=== PATIENT | female | born 1990 | race African-American/Black ===

== ENCOUNTER 2016-08-29 15:00 | Inpatient (IN) | payer SELFPAY ==
[2016-08-29] MEDS ORDERED: PENICILLIN G-K 5 MILLION UNIT VIAL ONE ×2 (15:59→19:38)
[2016-08-29 16:00] LABS: APPEARANCE,URINE SLIGHTLY-CLOUDY; BILIRUBIN,URINE NEGATIVE (NEGATIVE); GLUCOSE, URINE NEGATIVE (NEGATIVE); KETONES,URINE NEGATIVE (NEGATIVE); LEUKOCYTE ESTERASE,URINE LARGE (NEGATIVE); NITRITE,URINE NEGATIVE (NEGATIVE); PROTEIN,URINE NEGATIVE (NEGATIVE); URINE SPECIFIC GRAVITY 1.003; UROBILINOGEN,URINE NEGATIVE mg/dL (<2.0)
--- NOTE | 2016-08-29 16:00 | L&D Flow Sheet ---
LD Flowsheet Datetime Report Generated by CPN: 08/29/2016 16:00 Datetime: 08/29/2016 15:55 Patient Care IV/Blood Work: IV Started; IV Bolus Started (Keely Toi, RNC) Datetime: 08/29/2016 15:22 Vital Signs NBP Sys/[place]/Mean (mmHg): 107 (QS system process) : 75 (QS system process) : 87 (QS system process) Pulse: 89 (QS system process)
[2016-08-29 16:10] LABS: ABSOLUTE EOSINOPHILS # (AUTO) 0.1 10^3/uL (0.0-0.6); ABSOLUTE LYMPHOCYTES (AUTO) 2.3 10^3/uL (0.5-4.7); ABSOLUTE MONOCYTES (AUTO) 1.3 10^3/uL (0.1-1.4); BASOPHILS % (AUTO) 0.3 % (0-2); EOSINOPHILS % (AUTO) 0.5 % (0-6); HEMOGLOBIN 10.6 g/dL (12.0-15.5); HGB HCT DIFFERENCE 0.8; LYMPHOCYTES % (AUTO) 21.7 % (13-45); MEAN CORPUSCULAR HGB CONC 34.1 g/dL (32.0-36.0); MEAN CORPUSCULAR VOLUME 91 fl (80-97); MONOCYTES % (AUTO) 12.4 % (3-13); RED CELL DISTRIBUTION WIDTH 13.1 % (11.5-14.0); SEGMENTED NEUTROPHILS % (AUTO) 65.1 % (42-78); WHITE BLOOD COUNT 10.7 10^3/uL (4.0-10.5)
[2016-08-29 16:22] LABS: URINE BARBITURATES SCREEN NEGATIVE; URINE METHADONE SCREEN NEGATIVE; URINE PHENCYCLIDINE SCREEN NEGATIVE
[2016-08-29 16:28] LABS: URINE OPIATES LOW UNCONFIRMED POSITIVE
[2016-08-29] MEDS ORDERED: EPHEDRINE SULFATE INJ 50 MG/1 ML AMPULE ONE (16:48)
[2016-08-29] MEDS ORDERED: MISOPROSTOL 0.2 MG TABLET ONE ×2 (16:48→19:50)
[2016-08-29] MEDS ORDERED: FENTANYL/BUPIVACAINE/NS/PF 200 MCG/100 ML RTUINJ EPI ONE (16:49)
[2016-08-29] MEDS ORDERED: LIDOCAINE 1% INJ-PF (10 MG/ML) 30 ML SDV ONE ×2 (16:49→19:50)
[2016-08-29] MEDS ORDERED: BUPIVACAINE HCL 0.25 % INJ/PF (2.5 MG/1 ML) 30 ML VIAL ONE (16:49)
[2016-08-29] MEDS ORDERED: OXYTOCIN/NORMAL SALINE 0 UNIT/0 ML RTUINJ ONE (16:49)
[2016-08-29 17:07] LABS: ADD HIVPANEL? NO; HIV (1 AND 2) ANTIBODY NEGATIVE (NEGATIVE)
--- NOTE | 2016-08-29 18:00 | L&D Flow Sheet ---
LD Flowsheet Datetime Report Generated by CPN: 08/29/2016 18:00 Datetime: 08/29/2016 17:58 NBP Sys/[place]/Mean (mmHg): 133 (QS system process) : 75 (QS system process) : 98 (QS system process) Pulse: 82 (QS system process) LaborFlag: Labor (QS system process) Datetime: 08/29/2016 17:53 NBP Sys/[place]/Mean (mmHg): 131 (QS system process) : 77 (QS system process) : 99 (QS system process) Pulse: 78 (QS system process) LaborFlag: Labor (QS system process) Datetime: 08/29/2016 17:52 Stage of : Labor (Rocio Lin RN) Dilatation (cm): 5.5 (Rocio Lin RN) Effacement (%): 70 (Rocio Lin RN) Station: -1 (Rocio Lin RN) Exam by: DR TAN (Rocio Lin RN) Vaginal Bleeding: None (Rocio Lin RN) Cervix, Consistency: Soft (Rocio Lin RN) Cervix, Position: Midposition (Rocio Lin RN) Procedures: Sterile Vag Exam (Rocio Lin RN) Provider Reviewed Strip: Yes (Rocio Lin RN) Communication: RN at Bedside; RN Reviewed Strip; Provider at Bedside (Rocio Lin RN) Datetime: 08/29/2016 17:49 NBP Sys/[place]/Mean (mmHg): 123 (QS system process) : 79 (QS system process) : 97 (QS system process) Pulse: 90 (QS system process) LaborFlag: Labor (QS system process) Datetime: 08/29/2016 17:42 NBP Sys/[place]/Mean (mmHg): 122 (QS system process) : 76 (QS system process) : 95 (QS system process) Pulse: 84 (QS system process) LaborFlag: Labor (QS system process) Datetime: 08/29/2016 17:34 I/O Interventions: Barraza Cath Inserted (Rocio Fabiana Roulund, RN) Datetime: 08/29/2016 17:31 Epidural Procedure Other: Pump Started (Rocio Lin, RN) Anesthesia Level Check: T9 (Rocio Lin, RN) Datetime: 08/29/2016 17:29 Pulse: 90 (QS system process) SpO2 (%): 88 (QS system process) LaborFlag: Labor (QS system process) Datetime: 08/29/2016 17:28 NBP Sys/[place]/Mean (mmHg): 124 (QS system process) : 82 (QS system process) : 95 (QS system process) Pulse: 98 (QS system process) LaborFlag: Labor (QS system process) Datetime: 08/29/2016 17:27 NBP Sys/[place]/Mean (mmHg): 124 (QS system process) : 83 (QS system process) : 98 (QS system process) Pulse: 85 (QS system process) LaborFlag: Labor (QS system process) Datetime: 08/29/2016 17:26 NBP Sys/[place]/Mean (mmHg): 118 (QS system process) : 76 (QS system process) : 93 (QS system process) Pulse: 82 (QS system process) IV/Blood Work: IV Infusing per Order (Rocio Lin RN) Epidural Procedure: Loading Dose (Rocio Lin RN) LaborFlag: Labor (QS system process) Datetime: 08/29/2016 17:25 NBP Sys/[place]/Mean (mmHg): 125 (QS system process) : 76 (QS system process) : 96 (QS system process) Pulse: 83 (QS system process) Anesthesia Plans: Epidural (Rocio Lin RN) Epidural Procedure: Cath Placed; Test Dose (Rocio Lin RN) LaborFlag: Labor (QS system process) Datetime: 08/29/2016 17:24 Pulse: 100 (QS system process) SpO2 (%): 99 (QS system process) LaborFlag: Labor (QS system process) Datetime: 08/29/2016 17:19 Stage of : Labor (Rocio Lin RN) Pulse: 90 (QS system process) SpO2 (%): 100 (QS system process) Procedure Type: EPIDURAL (Rocio Lin RN) Procedure Verify: Correct Patient Identity; Correct Side and Site are Marked; Accurate Procedure Consent Form; Agreement on Procedure to be Done; Correct Patient Position; Relevant Images and Results are Properly Labeled and Displayed (Rocio Lin RN) Anesthesia Plans: Epidural (Rocio Fabiana Roulund, RN) Epidural Positioning: Sitting (Rocio Lin RN) Anesthesia Comments: DR CAAL @ BS (Rocio Lin RN) Communication: RN at Bedside; RN Reviewed Strip; Provider at Bedside (Rocio Lin RN) LaborFlag: Labor (QS system process) Datetime: 08/29/2016 17:05 NBP Sys/[place]/Mean (mmHg): 131 (QS system process) : 88 (QS system process) : 105 (QS system process) Pulse: 96 (QS system process) LaborFlag: Labor (QS system process) Datetime: 08/29/2016 17:02 I/O Interventions: Popsicle (Rocio Lin RN) Datetime: 08/29/2016 17:00 Monitor Mode: External; Palpation (Keely Toi, RNC) Frequency (min): 3-4 (Keely Toi, RNC) Quality: Mild/Moderate (Keely Toi, RNC) Duration (sec): 60-120 (Keely Toi, RNC) Duration Criteria: Less than Two 120 Second Contractions (Keely Toi, RNC) Pattern: Normal: <= 5 Contractions in 10 Minutes (Keely Toi, RNC) Resting Tone (Palpate): Relaxed (Keely Toi, RNC) Monitor Mode: External US (Keely Toi, RNC) FHR Baseline Rate : 170 (Keely Toi, RNC) Variability: Moderate 6-25 bpm (Keely Toi, RNC) Accelerations: 15X15 (Keely Toi, RNC) Decelerations: None (Keely Toi, RNC) Datetime: 08/29/2016 16:59 Stage of : Labor (Rocio Lin RN) Monitor Interventions for UA: [place] Adjusted (Rocio Lin RN) Monitor Interventions for FHR: Ultrasound Adjusted (Rocio Lin RN) Communication: RN at Bedside; RN Reviewed Strip (Rocio Lin RN) Datetime: 08/29/2016 16:56 Stage of : Labor (Rocio Lin RN) Procedure Type: EPIDURAL (Rocio Lin RN) Procedure Verify: Correct Patient Identity; Agreement on Procedure to be Done (Rocio Lin RN) Anesthesia Plans: Epidural (Rocio Lin RN) Anesthesia Comments: DR CAAL NOTIFIED OF EPIDURAL REQUEST (Rocio Lin RN) Communication: RN at Bedside (Rocio Lin RN) Datetime: 08/29/2016 16:40 Stage of : Labor (Rocio Lin RN) Monitor Interventions for UA: [place] Adjusted (Rocio Lin RN) Monitor Interventions for FHR: Ultrasound Adjusted (Rocio Lin, ANA) Pain Scale: 4 (Rocio Lin RN) Pain Presence: Intermittent (Rocio Lin RN) Pain Type: Contraction (Rocio Lin RN) Pain Location: Abdomen (Rocio Lin RN) Pain Relief Measures: Comfort Measures (Rocio Lin RN) Pain Coping: Breathing Through Contractions; Requesting Pain Medication or Epidural (Rocio Lin, RN) IV/Blood Work: New IV Bag Hung (Rocio Lin, RN) Comfort Measures: Family Support (Rocio Lin, RN) I/O Interventions: Up to BR (Rocio Lin, RN) Procedure Verify: Correct Patient Identity; Agreement on Procedure to be Done; Relevant Images and Results are Properly Labeled and Displayed (Rocio Lin, RN) Anesthesia Plans: Epidural (Rocio Lin, RN) Anesthesia Comments: EPIDURAL (Rocio Lin, RN) Communication: RN at Bedside; RN Reviewed Strip (Rocio Lin RN) LaborFlag: Labor (QS system process) Datetime: 08/29/2016 16:30 Monitor Mode: External; Palpation (IRENE Wallace) Frequency (min): 2.5-3 (IRENE Wallace) Quality: Mild/Moderate (IRENE Wallace) Duration (sec): 60-90 (IRENE Wallace) Duration Criteria: Less than Two 120 Second Contractions (IRENE Wallace) Pattern: Normal: <= 5 Contractions in 10 Minutes (IRENE Wallace) Resting Tone (Palpate): Relaxed (IRENE Wallace) Monitor Mode: External US (IRENE Wallace) FHR Baseline Rate : 165 (IRENE Wallace) Variability: Moderate 6-25 bpm (IRENE Wallace) Accelerations: Prolonged (IRENE Wallace) Decelerations: None (IRENE Wallace) Datetime: 08/29/2016 16:25 NBP Sys/[place]/Mean (mmHg): 121 (QS system process) : 83 (QS system process) : 98 (QS system process) Pulse: 83 (QS system process) Datetime: 08/29/2016 16:18 Pain Scale: 4 (IRENE Wallace) Pain Presence: Intermittent (IRENE Wallace) Pain Type: Cramping; Contraction (IRENE Wallace) Pain Location: Abdomen; Back (IRENE Wallace) Vaginal Bleeding: None (IRENE Wallace) Level of Consciousness: Fully Conscious (IRENE Wallace) DTR's/Clonus: DTRs 2+; No Clonus (IRENE Wallace) Headache: Denies (IRENE Wallace) Breath Sounds, Left: Clear and Equal (IRENE Wallace) Breath Sounds, Right: Clear and Equal (IRENE Wallace) Nausea/Vomiting: Denies (IRENE Wallace) RUQ Epigastric Pain: Denies (IRENE Wallace) Instructional Method: Verbal; Patient Instructed; Verbalized Understanding (IRENE Wallace) Plan of Care: Plan of Care Discussed; Vaginal Delivery; Labor (IRENE Wallace) Unit Routine: [place] to Room; Call [place]; Bed; Unit Personnel; Monitoring; IV Pumps; Bathroom Privileges; Medications (IRENE Wallace) Labor/Induction: Labor Stages; Augmentation; Antibiotic Use; Interventions; Activity (IRENE Wallace) Pain Management: IV Narcotics; Epidural; Pain Scale/Goals; Comfort Measures (IRENE Wallace) Medications: Antibiotics; IV Narcotics (IRENE Wallace) Datetime: 08/29/2016 16:11 I/O Interventions: Up to BR (IRENE Wallace) Datetime: 08/29/2016 16:00 Monitor Mode: External; Palpation (IRENE Wallace) Frequency (min): 3-5 (IRENE Wallace) Quality: Mild (IRENE Wallace) Duration (sec): 50-80 (IRENE Wallace) Duration Criteria: Less than Two 120 Second Contractions (IRENE Wallace) Pattern: Normal: <= 5 Contractions in 10 Minutes (IRENE Wallace) Resting Tone (Palpate): Relaxed (IRENE Wallace) Monitor Mode: External US (IRENE Wallace) FHR Baseline Rate : 155 (IRENE Wallace) Variability: Moderate 6-25 bpm (IRENE Wallace) Accelerations: 15X15 (IRENE Wallace) Decelerations: None (IRENE Wallace)
[2016-08-29] MEDS ORDERED: AMPICILLIN SOD INJ 2 GM VIAL IV ONE (18:30)
[2016-08-29] MEDS ORDERED: GENTAMICIN SULFATE INJ 80 MG/2 ML VIAL ONE (18:30)
[2016-08-29] MEDS ORDERED: AMPICILLIN SOD INJ 2 GM VIAL ONE (18:31)
[2016-08-29] MEDS ORDERED: GENTAMICIN SULFATE INJ 80 MG/2 ML VIAL IV ONE (18:36)
[2016-08-29] MEDS ORDERED: OXYTOCIN/NORMAL SALINE 20 UNIT/1,000 ML RTUINJ ONE (19:50)
--- NOTE | 2016-08-29 20:00 | L&D Flow Sheet ---
LD Flowsheet Datetime Report Generated by CPN: 08/29/2016 20:00 Datetime: 08/29/2016 19:54 Dilatation (cm): 7.0 (Laure Villarreal RN) Effacement (%): 80 (Laure Villarreal RN) Station: 0 (Laure Villarreal RN) Exam by: IRENE Kim (Laure Villarreal RN) Vaginal Bleeding: None (Laure Villarreal RN) Cervix, Consistency: Soft (Laure Villarreal RN) Cervix, Position: Midposition (Laure Villarreal RN) Membrane Comments: Forebag ruptured-clear fluid (Laure Villarreal RN) Communication: Provider at Bedside (Laure Villarreal RN) Datetime: 08/29/2016 19:48 NBP Sys/[place]/Mean (mmHg): 129 (QS system process) : 83 (QS system process) : 99 (QS system process) Pulse: 108 (QS system process) LaborFlag: Labor (QS system process) Datetime: 08/29/2016 19:47 Antibiotics: Penicillin IV (Units) @ 2,500,000 (Laure Villarreal RN) Patient Care Comments: O2 applied per face rebreather mask (Laure Villarreal RN) Datetime: 08/29/2016 19:34 NBP Sys/[place]/Mean (mmHg): 124 (QS system process) : 79 (QS system process) : 96 (QS system process) Pulse: 102 (QS system process) LaborFlag: Labor (QS system process) Datetime: 08/29/2016 19:30 Level of Consciousness: Fully Conscious (Laure Phil, RN) DTR's/Clonus: DTRs 1+ (Laure Phil, RN) Headache: Denies (Laure Phil, RN) Datetime: 08/29/2016 19:18 NBP Sys/[place]/Mean (mmHg): 117 (QS system process) : 80 (QS system process) : 94 (QS system process) Pulse: 107 (QS system process) LaborFlag: Labor (QS system process) Datetime: 08/29/2016 19:15 Stage of : Labor (Rocio Fabiana Roulund, RN) Respirations: 18 (Rocio Lin RN) Monitor Mode: External (Rocio Lin RN) Frequency (min): 1.5-4 (Rocio Lin RN) Quality: Moderate (Rocio Lin RN) Duration (sec): 70-120 (Rocio Lin RN) Duration (sec): 70-100 (Rocio Lin RN) Resting Tone (Palpate): Relaxed (Rocio Lin RN) Monitor Mode: External US (Rocio Lin RN) FHR Baseline Rate : 170 (Rocio Lin RN) FHR Baseline Changes: Tachycardia (Rocio Lin RN) FHR Baseline Changes: No Baseline Change (Rocio Lin RN) Variability: Minimal - Undetectable to <=5 bpm (Rocio Lin RN) Accelerations: None (Rocio Lin RN) Decelerations: None (Rocio Lin RN) Pain Relief Measures: Comfort Measures (Rocio Lin RN) Pain Coping: Talking Through Contractions (Rocio Lin RN) IV/Blood Work: IV Infusing per Order (Rocio Lin RN) Patient Position/Activity: Left Tilt; Tailors (Rocio Lin, ANA) Comfort Measures: Family Support (Rocio Lin, ANA) Communication: RN at Bedside; RN Reviewed Strip (Rocio Lin RN) LaborFlag: Labor (QS system process) Datetime: 08/29/2016 19:04 NBP Sys/[place]/Mean (mmHg): 125 (QS system process) : 89 (QS system process) : 103 (QS system process) Pulse: 100 (QS system process) LaborFlag: Labor (QS system process) Datetime: 08/29/2016 19:00 Stage of : Labor (Rocio Lin RN) Respirations: 18 (Rocio Lin RN) Monitor Mode: External (Rocio Lin RN) Monitor Interventions for UA: [place] Adjusted (Rocio Lin RN) Frequency (min): 2-3 (Rocio Lin RN) Quality: Moderate (Rocio Lin RN) Duration (sec): 90-100 (Rocio Lin RN) Resting Tone (Palpate): Relaxed (Rocio Lin RN) Monitor Mode: External US (Rocio Lin RN) FHR Baseline Rate : 170 (Rocio Lin RN) FHR Baseline Changes: Tachycardia (Rocio Lin RN) Variability: Minimal - Undetectable to <=5 bpm (Rocio Lin RN) Accelerations: None (Rocio Lin RN) Decelerations: None (Rocio Lin RN) Pain Scale: 0 (Rocio Lin RN) Pain Presence: None/Denies (Rocio Lin RN) Pain Type: N/A (Rocio Lin RN) Pain Relief Measures: Comfort Measures (Rocio Lin RN) Pain Coping: Talking Through Contractions (Rocio Lin RN) IV/Blood Work: IV Infusing per Order (Rocio Lin RN) Patient Position/Activity: Left Tilt; Tailors (Rocio Lin RN) Comfort Measures: Family Support (Rocio Lin RN) Communication: RN at Bedside; RN Reviewed Strip (Rocio Lin RN) LaborFlag: Labor (QS system process) Datetime: 08/29/2016 18:48 NBP Sys/[place]/Mean (mmHg): 118 (QS system process) : 80 (QS system process) : 95 (QS system process) Pulse: 87 (QS system process) LaborFlag: Labor (QS system process) Datetime: 08/29/2016 18:47 Stage of : Labor (Rocio Lin RN) Antibiotics: Gentamicin IV (mg) @ 120 (Rocio Lin RN) Communication: RN at Bedside (Rocio Lin RN) Datetime: 08/29/2016 18:45 Stage of : Labor (Rocio Lin RN) Respirations: 18 (Rocio Lin RN) Monitor Mode: External (Rocio Lin RN) Frequency (min): 2-3 (Rocio Lni RN) Quality: Moderate (Rocio Lin RN) Duration (sec): 70-120 (Rocio Lin RN) Resting Tone (Palpate): Relaxed (Rocio Lin RN) Monitor Mode: External US (Rocio Lin RN) FHR Baseline Rate : 170 (Rocio Lin RN) FHR Baseline Changes: Tachycardia (Rocio Lin RN) Variability: Minimal - Undetectable to <=5 bpm (Rocio Lin RN) Accelerations: None (Rocio Lin RN) Decelerations: None (Rocio Lin RN) Pain Relief Measures: Comfort Measures (Rocio Lin RN) Pain Coping: Talking Through Contractions (Rocio Lin RN) Patient Position/Activity: Left Tilt; Tailors (Rocio Lin, ANA) Comfort Measures: Family Support (Rocio Lin RN) Communication: RN at Bedside; RN Reviewed Strip (Rocio Lin RN) LaborFlag: Labor (QS system process) Datetime: 08/29/2016 18:34 NBP Sys/[place]/Mean (mmHg): 129 (QS system process) : 76 (QS system process) : 98 (QS system process) Pulse: 85 (QS system process) LaborFlag: Labor (QS system process) Datetime: 08/29/2016 18:30 Stage of : Labor (Rocio Lin RN) Respirations: 18 (Rocio Lin RN) Monitor Mode: External (Rocio Lin RN) Frequency (min): 2-3 (Rocio Lin RN) Quality: Moderate (Rocio Lin RN) Duration (sec): 70-110 (Rocio Lin RN) Resting Tone (Palpate): Relaxed (Rocio Lin RN) Monitor Mode: External US (Rocio Lin RN) FHR Baseline Rate : 170 (Rocio Lin RN) FHR Baseline Changes: Tachycardia (Rocio Lin RN) Variability: Minimal - Undetectable to <=5 bpm (Rocio Lin RN) Accelerations: None (Rocio Lin RN) Decelerations: None (Rocio Lin RN) Pain Scale: 0 (Rocio Lin RN) Pain Presence: None/Denies (Rocio Lin RN) Pain Type: N/A (Rocio Lin RN) Pain Location: Abdomen (Rocio Lin RN) Pain Relief Measures: Comfort Measures (Rocio Lin RN) Pain Coping: Talking Through Contractions (Rocio Lin RN) Patient Position/Activity: Left Tilt; Tailors (Rocio Lin, ANA) Comfort Measures: Family Support (Rocio Lin RN) Communication: RN at Bedside; RN Reviewed Strip (Rocio Lin RN) LaborFlag: Labor (QS system process) Datetime: 08/29/2016 18:20 Stage of : Labor (Rocio Lin RN) Provider Reviewed Strip: Yes (Rocio Lin RN) Communication: RN at Bedside; RN Reviewed Strip; Provider at Bedside; Provider Orders Received (Rocio Lin RN) Datetime: 08/29/2016 18:18 NBP Sys/[place]/Mean (mmHg): 132 (QS system process) : 82 (QS system process) : 100 (QS system process) Pulse: 97 (QS system process) LaborFlag: Labor (QS system process) Datetime: 08/29/2016 18:15 Stage of : Labor (Rocio Lin RN) Respirations: 18 (Rocio Lin RN) Monitor Mode: External (Rocio Lin RN) Frequency (min): 2-4 (Rocio Lin RN) Quality: Moderate (Rocio Lin RN) Duration (sec): 60-80 (Rocio Lin RN) Resting Tone (Palpate): Relaxed (Rocio Lin RN) Monitor Mode: External US (Rocio Lin RN) FHR Baseline Rate : 170 (Rocio Lin RN) FHR Baseline Changes: Tachycardia (Rocio Lin RN) Variability: Minimal - Undetectable to <=5 bpm (Rocio Lin, ANA) Accelerations: None (Rocio Lin, ANA) Decelerations: None (Rocio Lin RN) Pain Relief Measures: Comfort Measures (Rocio Lin RN) Pain Coping: Talking Through Contractions (Rocio Lin, ANA) IV/Blood Work: New IV Bag Hung (Rocio Lin, RN) Patient Position/Activity: Left Tilt; Tailors (Rocio Lin, ANA) Comfort Measures: Family Support (Rocio Lin RN) Communication: RN at Bedside; RN Reviewed Strip (Rocio Lin RN) LaborFlag: Labor (QS system process) Datetime: 08/29/2016 18:12 NBP Sys/[place]/Mean (mmHg): 128 (QS system process) : 85 (QS system process) : 102 (QS system process) Pulse: 88 (QS system process) LaborFlag: Labor (QS system process) Datetime: 08/29/2016 18:09 NBP Sys/[place]/Mean (mmHg): 132 (QS system process) : 87 (QS system process) : 101 (QS system process) Pulse: 97 (QS system process) LaborFlag: Labor (QS system process) Datetime: 08/29/2016 18:02 Stage of : Labor (Rocio Lin RN) NBP Sys/[place]/Mean (mmHg): 134 (QS system process) : 82 (QS system process) : 100 (QS system process) Pulse: 95 (QS system process) Temperature (F): 98.4 (Rocio Lin RN) Temperature (C): 36.9 (QS system process) Temperature Route: Axillary (Rocio Lin RN) LaborFlag: Labor (QS system process) Datetime: 08/29/2016 18:00 Stage of : Labor (Rocio Lin RN) Respirations: 18 (Rocio Lin RN) Monitor Mode: External (Rocio Lin RN) Frequency (min): 2-4 (Rocio Lin RN) Quality: Moderate (Rocio Lin RN) Duration (sec): 60-80 (Rocio Lin RN) Resting Tone (Palpate): Relaxed (Rocio Lin RN) Monitor Mode: External US (Rocio Lin RN) FHR Baseline Rate : 165 (Rocio Lin RN) FHR Baseline Changes: Tachycardia (Rocio Lin RN) Variability: Minimal - Undetectable to <=5 bpm (Rocio Lin RN) Accelerations: None (Rocio Lin RN) Decelerations: None (Rocio Lin, RN) Pain Scale: 0 (Rocio Lin, ANA) Pain Presence: None/Denies (Rocio Lin, ANA) Pain Type: N/A (Rocio Lin, ANA) Pain Relief Measures: Comfort Measures (Rocio Lin RN) Pain Coping: Talking Through Contractions (Rocio Lin, ANA) IV/Blood Work: IV Infusing per Order (Rocio Lin, ANA) Patient Position/Activity: Left Tilt; Low Fowlers (Rocio Lin, ANA) Comfort Measures: Family Support (Rocio Lin, ANA) Communication: RN at Bedside; RN Reviewed Strip (Rocio Lin, ANA) LaborFlag: Labor (QS system process)
[2016-08-29] MEDS ORDERED: RINGERS SOLUTION,LACTATED 1,000 ML IV PRN (20:13)
[2016-08-29] MEDS ORDERED: PENICILLIN G POTASSIUM 5,000,000 UNIT in DEXTROSE 5%-WATER 100 ML IV ONE (20:13)
[2016-08-29] MEDS ORDERED: ZOLPIDEM TARTRATE 5 MG TABLET PO PRN (21:13)
[2016-08-29] MEDS ORDERED: PSEUDOEPHEDRINE HCL 30 MG TABLET PO PRN (21:13)
[2016-08-29] MEDS ORDERED: BENZOCAINE/MENTHOL AEROSOL SPRAY 56 ML TOP PRN (21:13)
[2016-08-29] MEDS ORDERED: PROMETHAZINE HCL INJ 25 MG/1 ML VIAL IV PRN (21:13)
[2016-08-29] MEDS ORDERED: MAGNESIUM HYDROXIDE SUSP 30 ML UDCUP PO PRN (21:13)
[2016-08-29] MEDS ORDERED: DIBUCAINE 1% OINTMENT 28 GM TP PRN (21:13)
[2016-08-29] MEDS ORDERED: MEASLES,MUMPS&RUBELLA VACC/PF 0.5 ML VIAL SUBCUT PRN (21:13)
[2016-08-29] MEDS ORDERED: NA PHOS,M-B/NA PHOS,DI-BA (ADULT) 133 ML ENEMA PR PRN (21:13)
[2016-08-29] MEDS ORDERED: PROMETHAZINE HCL 25 MG SUPP.RECT PR PRN (21:13)
[2016-08-29] MEDS ORDERED: DIPHENHYDRAMINE HCL 25 MG CAPSULE PO PRN (21:13)
[2016-08-29] MEDS ORDERED: DIPH/PERTUSS(ACELL)/TETANUS VAC/PF 0.5 ML SYR (>=10YO) IM PRN (21:13)
[2016-08-29] MEDS ORDERED: OXYTOCIN/NORMAL SALINE 1,000 ML IV PRN (21:13)
[2016-08-29] MEDS ORDERED: ACETAMINOPHEN 650 MG SUPP.RECT PR PRN (21:13)
[2016-08-29] MEDS ORDERED: PROMETHAZINE HCL 25 MG TABLET PO PRN (21:13)
[2016-08-29] MEDS ORDERED: GLYCERIN/WITCH HAZEL LEAF 1 EACH MED..PAD TP PRN (21:13)
[2016-08-29] MEDS ORDERED: AMPICILLIN SOD INJ 2 GM VIAL IV SCH (21:30)
[2016-08-29] MEDS ORDERED: AMPICILLIN SODIUM 2 GM in NORMAL SALINE 100 ML IV ONE ×4 (22:00)
[2016-08-29] MEDS ORDERED: GENTAMICIN SULFATE INJ 80 MG/2 ML VIAL IV SCH (22:00)
--- NOTE | 2016-08-29 22:00 | L&D Flow Sheet ---
LD Flowsheet Datetime Report Generated by CPN: 08/29/2016 22:00 Datetime: 08/29/2016 21:58 NBP Sys/[place]/Mean (mmHg): 139 (QS system process) : 82 (QS system process) : 105 (QS system process) Pulse: 82 (QS system process) Datetime: 08/29/2016 21:43 NBP Sys/[place]/Mean (mmHg): 145 (QS system process) : 71 (QS system process) : 102 (QS system process) Pulse: 93 (QS system process) Datetime: 08/29/2016 21:28 NBP Sys/[place]/Mean (mmHg): 141 (QS system process) : 85 (QS system process) : 107 (QS system process) Pulse: 80 (QS system process) Datetime: 08/29/2016 21:14 Stage of : Recovery (Laure Phil, RN) Datetime: 08/29/2016 20:58 Stage of : Recovery (Laure Phil, RN) NBP Sys/[place]/Mean (mmHg): 131 (QS system process) : 78 (QS system process) : 102 (QS system process) Pulse: 87 (QS system process) Respirations: 18 (Laure Villarreal RN) Temperature (F): 98.7 (Laure Villarreal RN) Temperature (C): 37.1 (QS system process) Temperature Route: Oral (Laure Villarreal RN) Pain Scale: 0 (Laure Villarreal RN) Datetime: 08/29/2016 20:54 Patient Care Comments: del viable male (Laure Villarreal, ANA) Datetime: 08/29/2016 20:50 I/O Interventions: [place] Discontinued (Laure Villarreal RN) Patient Care Comments: 900 ml (Laure Villarreal RN) Datetime: 08/29/2016 20:49 Dilatation (cm): 10.0 (Laure Phil, RN) Datetime: 08/29/2016 20:48 NBP Sys/[place]/Mean (mmHg): 138 (QS system process) : 87 (QS system process) : 105 (QS system process) Pulse: 96 (QS system process) LaborFlag: Labor (QS system process) Datetime: 08/29/2016 20:46 Patient Position/Activity: Tailors (Denisha Lattibeaudeir, RN) Datetime: 08/29/2016 20:45 Monitor Mode: External (Laure Villarreal RN) Frequency (min): 2-3 (Laure Villarreal RN) Quality: Strong (Laure Villarreal RN) Duration (sec): 60-90 (Laure Villarreal RN) Pattern: Normal: <= 5 Contractions in 10 Minutes (Laure Villarreal RN) Resting Tone (Palpate): Relaxed (Laure Villarreal RN) Monitor Mode: External US (Laure Villarreal RN) FHR Baseline Rate : 175 (Laure Villarreal RN) FHR Baseline Changes: Tachycardia (Luare Villarreal RN) Variability: Moderate 6-25 bpm (Laure Villarreal RN) Accelerations: None (Laure Villarreal RN) Decelerations: Late (Laure Villarreal RN) Patient Care Comments: Pt sitting up facing head of bed (Denisha Sunshine RN) Communication: RN Reviewed Strip; Provider at Bedside (Laure Villarreal RN) Datetime: 08/29/2016 20:41 Patient Care Comments: pressure bag applied to LR (Denisha Sunshine RN) Datetime: 08/29/2016 20:36 Actions for Decelerations: Hands and Knees (Denisha Lattibeaudeir, RN) Datetime: 08/29/2016 20:34 Contraction Comments: Trial push to reduce cervix. (Laure Villarreal RN) IV/Blood Work: IV Bolus Started (Laure Villarreal RN) Oxygen Amount : 10 (Denisha Lattibeaudeir, RN) Oxygen Method: Non-Rebreather (Denisha Lattibeaudeir, RN) Datetime: 08/29/2016 20:32 Stage 2 Comments: Dr. [place] at . (Denisha Lattibeaudeir, RN) Datetime: 08/29/2016 20:30 Monitor Mode: External US (Laure Phil, RN) FHR Baseline Rate : 175 (Laure Phil, RN) FHR Baseline Changes: Tachycardia (Laure Phil, RN) Variability: Minimal - Undetectable to <=5 bpm (Laure Phil, RN) Accelerations: 15X15 (Laure Phil, RN) Decelerations: Early; Variable (Laure Phil, RN) Comments: variable down to 100's; 2 lates (Laure Phil, RN) Datetime: 08/29/2016 20:23 Dilatation (cm): 9.5 (Laure Phil, RN) Station: 1 (Laure Villarreal, RN) Exam by: IRENE Kim (Laure Phil, RN) Vaginal Bleeding: None (Laure Villarreal, RN) Cervix, Consistency: Soft (Laure Phil, RN) Cervix, Position: Anterior (Laure Phil, RN) Datetime: 08/29/2016 20:20 Patient Care Comments: O2 d/c'd (Laure Villarreal, RN) Datetime: 08/29/2016 20:18 NBP Sys/[place]/Mean (mmHg): 110 (QS system process) : 66 (QS system process) : 83 (QS system process) Pulse: 91 (QS system process) LaborFlag: Labor (QS system process) Datetime: 08/29/2016 20:15 Monitor Mode: External (Laure Phil, RN) Frequency (min): 1-4 (Laure Phil, RN) Frequency (min): 2-5 (Laure Phil, RN) Quality: Moderate to Strong (Laure Phil, RN) Duration (sec): 50-100 (Laure Phil, RN) Duration (sec): 70-90 (Laure Phil, RN) Pattern: Normal: <= 5 Contractions in 10 Minutes (Laure Phil, RN) Resting Tone (Palpate): Relaxed (Laure Phil, RN) Monitor Mode: External US (Laure Phil, RN) FHR Baseline Rate : 175 (Laure Phil, RN) FHR Baseline Rate : 170 (Laure Phil, RN) FHR Baseline Changes: Tachycardia (Laure Phil, RN) Variability: Minimal - Undetectable to <=5 bpm (Laure Phil, RN) Accelerations: None (Laure Phil, RN) Decelerations: Early; Late (Laure Phil, RN) Decelerations: Early (Laure Phil, RN) Datetime: 08/29/2016 20:04 NBP Sys/[place]/Mean (mmHg): 115 (QS system process) : 70 (QS system process) : 87 (QS system process) Pulse: 85 (QS system process) LaborFlag: Labor (QS system process) Datetime: 08/29/2016 20:00 Monitor Mode: External (Laure Villarreal RN) Frequency (min): 2-5 (Laure Villarreal RN) Quality: Moderate to Strong (Laure Villarreal RN) Duration (sec): 70-100 (Laure Villarreal RN) Pattern: Normal: <= 5 Contractions in 10 Minutes (Laure Villarreal RN) Resting Tone (Palpate): Relaxed (Laure Villarreal RN) Monitor Mode: External US (Laure Villarreal RN) FHR Baseline Rate : 170 (Laure Villarreal RN) FHR Baseline Changes: Tachycardia (Laure Villarreal RN) Variability: Minimal - Undetectable to <=5 bpm (Laure Villarreal RN) Accelerations: None (Laure Villarreal RN) Decelerations: Variable (Laure Villarreal RN)
[2016-08-29] MEDS ORDERED: IBUPROFEN 800 MG TABLET ONE (22:27)
[2016-08-29] MEDS: IBUPROFEN 800 MG TABLET PO SCH (22:28)
--- NOTE | 2016-08-29 23:16 | Admission Physical ---
Datetime Report Generated by CPN: 08/29/2016 23:16 CURRENT ADMISSION Chief Complaint: Suspected Ruptured Membranes Indication for Induction: Not Applicable Admit Impression- Other: SROM at 1400 today // Admit Plan: Admit to Unit; Initiate Labor Protocol ALLERGIES Medication Allergies: No Medication Allergies: No Known Allergies (08/29/2016) Medication Allergies: No Known Allergies (10/28/2015) Latex: No Latex Allergies OBSTETRICAL HISTORY EDC: 09/19/2016 00:00 : 2 Para: 1 Term: 1 : 0 SAB: 0 IAB: 0 Ectopic: 0 Livin Cesareans: 0 VBACs: 0 Multiple Births: 0 Gestational Diabetes: No Rh Sensitization: No Incompetent Cervix: No LAW: No Infertility: No ART Treatment: No Uterine Anomaly: No IUGR: No Hx Previous C/S: No Macrosomia: No Hx Loss/Stillborn: No PIH: No Hx : No Placenta Previa/Abruption: No Depression/PP Depression: No PTL/PROM: No Post Hemorrhage: No Obstetrical History Comments: G1:2014, 5lb 6 ozs G2: current, no PNCz SEE RECORDS Alcohol: No Marijuana : No Cocaine: No Other Illicit Drugs: No Cigarettes: Former Smoker. 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 Surgery: No Heart Disease: No Hosp/Surgery: No Autoimmune Disorder: No Anesthetic Complications: No Kidney Disease: No Abnormal Pap Smear: No Neuro/Epilepsy: No Psychiatric Disorders: No Other Medical Diseases: No Hepatitis/Liver Disease: No Significant Family History: No Varicosities/Phlebitis: No Trauma/Violence : No Thyroid Dysfunction: No INFECTIOUS HISTORY Gonorrhea: No Genital Herpes: No Chlamydia: No Tuberculosis: No Syphilis: No Hepatitis: No HIV/AIDS Exposure: No Rash or Viral Illness: No HPV: No PHYSICAL EXAM General: Normal HEENT: Normal Neurologic: Normal Thyroid: Deferred Heart: Normal Lungs: Normal Breast: Deferred Back: Normal Abdomen: Normal Genitourinary Exam: Normal Extremities: Normal DTRs: Normal Pelvic Type: Adequate Physical Exam Comments: Gravid Vital Signs: Reviewed; Within Normal Limits VAGINAL EXAM Dilatation: 3 Effacement: 70 Station: -3 Contraction Comments: 3 mins apart MEMBRANES Membranes: Ruptured Amniotic Fluid Color: Clear FETUS A EGA: 37.0 Monitoring: External US FHR- Baseline: 160 Variability: Moderate 6-25bpm Accelerations: 10X10 Decelerations: None Admit Comment: Late onset care-first OB visit 08/22/16 at [facility] States had sono at [facility] at 20 wks-did not know was Had transportation problems and could not apply for Medicaid Close interval pregnancies GBS positive-begin prophylaxis See records from [facility] with G1-proven for 6lbs 8 oz PLANS FOR LABOR AND DELIVERY Pain Management: Epidural Feeding Preference: Breast Benefit of Breast Feed Discussed: Yes Circumcision: No INFORMED CONSENT Assignment: Rona Staton MD Signature: with User ID: Newton : with User ID: Newton : I personally evaluated and examined the patient in conjunction with the MLP and agree with the assessment, treatment plan and disposition.
--- NOTE | 2016-08-29 23:43 | Delivery Summary ---
Del Sum A-C Datetime Report Generated by CPN: 08/29/2016 23:43 ADMISSION DATA Chief Complaint: Suspected Ruptured Membranes Indication for Induction: Not Applicable Admission Impression: Term, Intrauterine ; Ruptured Membranes Admission Impression Comments: SROM at 1400 today 08/29/16 Admit Provider Comments: Late onset care-first OB visit 08/22/16 at [facility] States had sono at [facility] at 20 wks-did not know was Had transportation problems and could not apply for Medicaid Close interval pregnancies GBS positive-begin prophylaxis See records from [facility] with G1-proven for 6lbs 8 oz DELIVERY PERSONNEL Delivery Doctor:: Rona Staton MD Labor and Delivery Nurse:: Laure Villarreal RNpurchasing and fiscal clerk Nurse:: Maura Smith RN Nursery Nurse:: Heather Brink RN Educational Assistant Teacher/SENIOR LABEL SPECIALIST: Molly Garcia SENIOR LABEL SPECIALIST MATERNAL INFORMATION Delivery Anesthesia: Epidural Medications After Delivery: Pitocin Bolus-Please Comment; Pitocin Drip 20 Units/1000ml NSS Estimated Blood Loss (ml): 200 Maternal Complications: Chorioamnionitis; Other Other Maternal Complications: limited pnc Provider Comments: Pt developed tachycardia while on gbs prophylaxis with PCN. Added gentamcyin. Pt had intermittent lates when 9 cm...responded to oxygen, ivf and repositioning. Progressed to complete and pushed to delivery of male infant wtih aptgars 9 and 9. Head delivered OA and nuchal reduced. Shoulders and body delivered easily. No lacerations. Placenta sponta and intact. LABOR SUMMARY EDC: 09/19/2016 00:00 No. Babies in Womb: 1 Attempted: No Labor Anesthesia: Epidural LABOR INFORMATION Reason for Induction: Not Applicable Onset of Labor: 08/29/2016 14:00 Complete Dilatation: 08/29/2016 20:49 Oxytocin: N/A Group B Beta Strep: Positive Antibiotics # of Doses: 2 Antibiotics Time of Last Dose: 1946 Name of Antibiotic Given: penicillin g _ gentamycin Steroids Given: None Reason Steroids Not Administered: Not Applicable MEMBRANES Membranes Rupture Method: Spontaneous Rupture of Membranes: 08/29/2016 14:00 Length of Rupture (hr): 6.90 Amniotic Fluid Color: Clear Amniotic Fluid Amount: Moderate Amniotic Fluid Odor: None STAGES OF LABOR Stage 1 hr: 6 Stage 1 min: 49 Stage 2 hr: 0 Stage 2 min: 5 Stage 3 hr: 0 Stage 3 min: 4 Total Time in Labor hr: 6 Total Time in Labor min: 58 VAGINAL DELIVERY Episiotomy: None Laceration Type: None Sponge Count Correct: N/A CSECTION DELIVERY Primary Indication: N/A Secondary Indication: N/A CSection Incidence: N/A Labor: N/A Elective: N/A CSection Incision: N/A BABY A INFORMATION Infant Delivery Date/Time: 08/29/2016 20:54 Method of Delivery: Vaginal Born in Route : No : N/A Forceps: N/A Vacuum Extraction: N/A Shoulder Dystocia : No PRESENTATION/POSITION BABY A Presentation: Cephalic Cephalic Presentation: Vertex Vertex Position: Left Occipital Anterior Breech Presentation: N/A PLACENTA INFORMATION BABY A Placenta Delivery Time : 08/29/2016 20:58 Placenta Method of Delivery: Spontaneous Placenta Status: Delivered SCORES BABY A Heart Rate 1 min: >100 bpm Resp Effort 1 min: Good Cry Reflex Irritability 1 min: Cough or Sneeze or Pulls Away Muscle Tone 1 min: Active Motion Color 1 min: Blue/Pale Resuscitation Effort 1 min: Tactile Stimulation SCORE 1 MIN: 8 Heart Rate 5 min: >100 bpm Resp Effort 5 min: Good Cry Reflex Irritability 5 min: Cough or Sneeze or Pulls Away Muscle Tone 5 min: Active Motion Color 5 min: Body Kountze, Extremities Blue Resuscitation Effort 5 min: Tactile Stimulation SCORE 5 MIN: 9 INFORMATION BABY A Gestational Age at Delivery: 37.0 Gestational Status: Early Term- 37- 38.6 Weeks Infant Outcome : Liveborn Infant Condition : Stable Infant Sex: Male IDENTIFICATION BABY A Verification Date/Time: 08/29/2016 21:06 ID Band Number: [id number] Mother's Name Verified: Yes RN Verifying Infant: Norman Sunshine RN Additional Verifying Personnel: Luz Schneider RN WEIGHT/LENGTH BABY A Infant Birthweight (gm): 3660 Infant Weight (lb): 8 Weight (oz): 1 Infant Length (in): 19.25 Infant Length (cm): 48.90 CORD INFORMATION BABY A No. Cord Vessels: 3 Nuchal Cord : Around Neck x1, Loose Cord Blood Taken: Yes-For Eval (Mom's Blood Type - or O+) Infant Suction: Mouth; Nose ASSESSMENT BABY A Complications: Extended Tachycardia Physical Findings at Delivery: Other Physical Findings- Other: very bruised face; see NSY notes for further documentation Respirations: Appears Normal Skin to Skin: Yes Skin to Skin Time (min): 45 Granite Installer/ALS Called : No Care By: Chen Brink RN BABY B INFORMATION : N/A SIGNATURES Signature: with User ID: [email or web address] : I personally evaluated and examined the patient in conjunction with the MLP and agree with the assessment, treatment plan and disposition.
[2016-08-30] MEDS: FAMOTIDINE 20 MG TABLET PO SCH ×2 (00:02→21:56)
[2016-08-30] MEDS ORDERED: PENICILLIN G POTASSIUM 2,500,000 UNIT in DEXTROSE 5%-WATER 50 ML IV SCH (00:13)
[2016-08-30] MEDS: ACETAMINOPHEN WITH CODEINE #3 TABLET PO PRN ×5 (00:28→23:14)
[2016-08-30] MEDS ORDERED: GENTAMICIN SULFATE 80 MG in DEXTROSE 5%-WATER 100 ML IV SCH ×4 (02:00)
[2016-08-30] MEDS: IBUPROFEN 800 MG TABLET PO SCH ×3 (05:44→21:56)
[2016-08-30] MEDS ORDERED: AMPICILLIN SODIUM 2 GM in NORMAL SALINE 100 ML IV SCH ×4 (06:00)
--- NOTE | 2016-08-30 07:00 | L&D Flow Sheet ---
LD Flowsheet Datetime Report Generated by CPN: 08/30/2016 07:00 Datetime: 08/29/2016 22:58 NBP Sys/Lenka/Mean (mmHg): 127 (QS system process) : 73 (QS system process) : 95 (QS system process) Pulse: 96 (QS system process) Datetime: 08/29/2016 22:43 NBP Sys/Lenka/Mean (mmHg): 130 (QS system process) : 75 (QS system process) : 98 (QS system process) Pulse: 90 (QS system process) Datetime: 08/29/2016 22:28 NBP Sys/Lenka/Mean (mmHg): 137 (QS system process) : 74 (QS system process) : 100 (QS system process) Pulse: 96 (QS system process) Respirations: 18 (Laure Villarreal RN) Pain Scale: 1 (Laure Villarreal RN) Pain Assessment Comments: Pt c/o back pain where epidural was. (Laure Villarreal RN) Datetime: 08/29/2016 22:13 NBP Sys/Lenka/Mean (mmHg): 140 (QS system process) : 86 (QS system process) : 108 (QS system process) Pulse: 82 (QS system process) Datetime: 08/29/2016 21:58 NBP Sys/Lenka/Mean (mmHg): 139 (QS system process) : 82 (QS system process) : 105 (QS system process) Pulse: 82 (QS system process) Respirations: 18 (Laure Phil, RN) Temperature (F): 99.0 (Laure Phil, RN) Temperature (C): 37.2 (QS system process) Datetime: 08/29/2016 21:43 NBP Sys/Lenka/Mean (mmHg): 145 (QS system process) : 71 (QS system process) : 102 (QS system process) Pulse: 93 (QS system process) Respirations: 18 (Laure Phil, RN) Pain Scale: 0 (Laure Phil, RN) Datetime: 08/29/2016 21:28 NBP Sys/Lenka/Mean (mmHg): 141 (QS system process) : 85 (QS system process) : 107 (QS system process) Pulse: 80 (QS system process) Datetime: 08/29/2016 21:14 Stage of : Recovery (Laure Villarreal RN) Datetime: 08/29/2016 20:58 Stage of : Recovery (Laure Villarreal RN) NBP Sys/Lenka/Mean (mmHg): 131 (QS system process) : 78 (QS system process) : 102 (QS system process) Pulse: 87 (QS system process) Respirations: 18 (Laure Villarreal RN) Temperature (F): 98.7 (Laure Villarreal RN) Temperature (C): 37.1 (QS system process) Temperature Route: Oral (Laure Villarreal RN) Pain Scale: 0 (Laure Villarreal RN) Datetime: 08/29/2016 20:54 Patient Care Comments: del viable male (Laure Phil, RN) Datetime: 08/29/2016 20:50 I/O Interventions: Barraza Discontinued (Laure Phil, RN) Patient Care Comments: 900 ml (Laure Phil, RN) Datetime: 08/29/2016 20:49 Dilatation (cm): 10.0 (Laure Phil, RN) Datetime: 08/29/2016 20:48 NBP Sys/Lenka/Mean (mmHg): 138 (QS system process) : 87 (QS system process) : 105 (QS system process) Pulse: 96 (QS system process) LaborFlag: Labor (QS system process) Datetime: 08/29/2016 20:46 Patient Position/Activity: Tailors (Denisha Lattibeaudeir, RN) Datetime: 08/29/2016 20:45 Monitor Mode: External (Laure Villarreal RN) Frequency (min): 2-3 (Laure Villarreal RN) Quality: Strong (Laure Villarreal RN) Duration (sec): 60-90 (Laure Villarreal RN) Pattern: Normal: <= 5 Contractions in 10 Minutes (Laure Villarreal RN) Resting Tone (Palpate): Relaxed (Laure Villarreal RN) Monitor Mode: External US (Laure Villarreal RN) FHR Baseline Rate : 175 (Laure Villarreal RN) FHR Baseline Changes: Tachycardia (Laure Villarreal RN) Variability: Moderate 6-25 bpm (Laure Villarreal RN) Accelerations: None (Laure Villarreal RN) Decelerations: Late (Laure Villarreal RN) Patient Care Comments: Pt sitting up facing head of bed (Denisha Sunshine RN) Communication: RN Reviewed Strip; Provider at Bedside (Laure Villarreal RN) Datetime: 08/29/2016 20:41 Patient Care Comments: pressure bag applied to LR (Denisha Sunshine RN) Datetime: 08/29/2016 20:36 Actions for Decelerations: Hands and Knees (Denisha Sunshine RN) Datetime: 08/29/2016 20:34 Contraction Comments: Trial push to reduce cervix. (Laure Villarreal RN) IV/Blood Work: IV Bolus Started (Laure Villarreal RN) Oxygen Amount : 10 (Denisha Lattibeaudeir, RN) Oxygen Method: Non-Rebreather (Denisha Lattibeaudeir, RN) Datetime: 08/29/2016 20:32 Stage 2 Comments: Dr. Staton at bs. (Denisha Lattiblouieudeir, RN) Datetime: 08/29/2016 20:30 Monitor Mode: External US (Laure Villarreal RN) FHR Baseline Rate : 175 (Laure Villarreal RN) FHR Baseline Changes: Tachycardia (Laure Villarreal RN) Variability: Minimal - Undetectable to <=5 bpm (Laure Villarreal, RN) Accelerations: 15X15 (Laure Villarreal, RN) Decelerations: Early; Variable (Laure Villarreal, RN) Comments: variable down to 100's; 2 lates (Laure Villarreal, RN) Datetime: 08/29/2016 20:23 Dilatation (cm): 9.5 (Laure Villarreal, RN) Station: 1 (Laure Villarreal, RN) Exam by: IRENE Kim (Laure Villarreal, RN) Vaginal Bleeding: None (Laure Villarreal, RN) Cervix, Consistency: Soft (Laure Villarreal, RN) Cervix, Position: Anterior (Laure Villarreal, RN) Datetime: 08/29/2016 20:20 Patient Care Comments: O2 d/c'd (Laure Villarreal, RN) Datetime: 08/29/2016 20:18 NBP Sys/Lenka/Mean (mmHg): 110 (QS system process) : 66 (QS system process) : 83 (QS system process) Pulse: 91 (QS system process) LaborFlag: Labor (QS system process) Datetime: 08/29/2016 20:15 Monitor Mode: External (Laure Phil, RN) Frequency (min): 1-4 (Laure Phil, RN) Frequency (min): 2-5 (Laure Phil, RN) Quality: Moderate to Strong (Laure Phil, RN) Duration (sec): 50-100 (Laure Phil, RN) Duration (sec): 70-90 (Laure Phil, RN) Pattern: Normal: <= 5 Contractions in 10 Minutes (Laure Phil, RN) Resting Tone (Palpate): Relaxed (Laure Phil, RN) Monitor Mode: External US (Laure Phil, RN) FHR Baseline Rate : 175 (Laure Phil, RN) FHR Baseline Rate : 170 (Laure Phil, RN) FHR Baseline Changes: Tachycardia (Laure Phil, RN) Variability: Minimal - Undetectable to <=5 bpm (Laure Phil, RN) Accelerations: None (Laure Phil, RN) Decelerations: Early; Late (Laure Phil, RN) Decelerations: Early (Laure Phil, RN) Datetime: 08/29/2016 20:04 NBP Sys/Lenka/Mean (mmHg): 115 (QS system process) : 70 (QS system process) : 87 (QS system process) Pulse: 85 (QS system process) LaborFlag: Labor (QS system process) Datetime: 08/29/2016 20:00 Monitor Mode: External (Laure Phil, RN) Frequency (min): 2-5 (Laure Phil, RN) Quality: Moderate to Strong (Laure Phil, RN) Duration (sec): 70-100 (Laure Phil, RN) Pattern: Normal: <= 5 Contractions in 10 Minutes (Laure Phil, RN) Resting Tone (Palpate): Relaxed (Laure Phil, RN) Monitor Mode: External US (Laure Phil, RN) FHR Baseline Rate : 170 (Laure Phil, RN) FHR Baseline Changes: Tachycardia (Laure Phil, RN) Variability: Minimal - Undetectable to <=5 bpm (Laure Phil, RN) Accelerations: None (Laure Phli, RN) Decelerations: Variable (Laure Villarreal, ANA) Datetime: 08/29/2016 19:58 Patient Position/Activity: Right Lateral; Peanut Ball (Laure Villarreal RN) Datetime: 08/29/2016 19:54 Dilatation (cm): 7.0 (Laure Villarreal RN) Effacement (%): 80 (Laure Villarreal RN) Station: 0 (Laure Villarreal RN) Exam by: IRENE Kim (Laure Villarreal RN) Vaginal Bleeding: None (Laure Villarreal RN) Cervix, Consistency: Soft (Laure Villarreal RN) Cervix, Position: Midposition (Laure Villarreal RN) Membrane Comments: Forebag ruptured-clear fluid (Laure Villarreal RN) Communication: Provider at Bedside (Laure Villarreal RN) Datetime: 08/29/2016 19:48 NBP Sys/Lenka/Mean (mmHg): 129 (QS system process) : 83 (QS system process) : 99 (QS system process) Pulse: 108 (QS system process) LaborFlag: Labor (QS system process) Datetime: 08/29/2016 19:47 Antibiotics: Penicillin IV (Units) @ 2,500,000 (Laure Villarreal RN) Patient Care Comments: O2 applied per face rebreather mask (Laure Villarreal RN) Datetime: 08/29/2016 19:45 Monitor Mode: External (Laure Villarreal RN) Frequency (min): 2-4 (Laure Villarreal RN) Quality: Moderate to Strong (Laure Phil, RN) Quality: Moderate (Laure Phil, RN) Duration (sec): 70-100 (Laure Phil, RN) Duration (sec): 60-80 (Laure Phil, RN) Pattern: Normal: <= 5 Contractions in 10 Minutes (Laure Phil, RN) Resting Tone (Palpate): Relaxed (Laure Phil, RN) Monitor Mode: External US (Laure Phil, RN) FHR Baseline Rate : 175 (Laure Pihl, RN) FHR Baseline Rate : 170 (Laure Phil, RN) FHR Baseline Changes: Tachycardia (Laure Phil, RN) Variability: Minimal - Undetectable to <=5 bpm (Laure Phil, RN) Accelerations: None (Laure Phil, RN) Decelerations: None (Laure Phil, RN) Datetime: 08/29/2016 19:34 NBP Sys/Lenka/Mean (mmHg): 124 (QS system process) : 79 (QS system process) : 96 (QS system process) Pulse: 102 (QS system process) LaborFlag: Labor (QS system process) Datetime: 08/29/2016 19:30 Monitor Mode: External (Laure Phil, RN) Frequency (min): 2-5 (Laure Phil, RN) Quality: Moderate to Strong (Laure Phil, RN) Duration (sec): 70-100 (Laure Phil, RN) Resting Tone (Palpate): Relaxed (Laure Phil, RN) Monitor Mode: External US (Laure Phil, RN) FHR Baseline Rate : 170 (Laure Phil, RN) FHR Baseline Changes: Tachycardia (Laure Phil, RN) Variability: Minimal - Undetectable to <=5 bpm (Laure Phil, RN) Accelerations: None (Laure Phil, RN) Decelerations: None (Laure Phil, RN) Level of Consciousness: Fully Conscious (Laure Phil, RN) DTR's/Clonus: DTRs 1+ (Laure Phil, RN) Headache: Denies (Laure Phil, RN) Breath Sounds, Left: Clear and Equal (Laure Phil, RN) Breath Sounds, Right: Clear and Equal (Laure Phil, RN) Nausea/Vomiting: Denies (Laure Phil, RN) RUQ Epigastric Pain: Denies (Laure Phil, RN) Datetime: 08/29/2016 19:18 NBP Sys/Lenka/Mean (mmHg): 117 (QS system process) : 80 (QS system process) : 94 (QS system process) Pulse: 107 (QS system process) LaborFlag: Labor (QS system process) Datetime: 08/29/2016 19:15 Stage of : Labor (Rocio Lin RN) Respirations: 18 (Rocio Lin RN) Monitor Mode: External (Roico Lin RN) Frequency (min): 1.5-4 (Rocio Lin RN) Quality: Moderate (Rocio Lin RN) Duration (sec): 70-120 (Rocio Lin RN) Duration (sec): 70-100 (Rcoio Lin, ANA) Resting Tone (Palpate): Relaxed (Rocio Lin RN) Monitor Mode: External US (Rocio Lin RN) FHR Baseline Rate : 170 (Rocio Lin RN) FHR Baseline Changes: Tachycardia (Rocio Lin RN) FHR Baseline Changes: No Baseline Change (Rocio Lin RN) Variability: Minimal - Undetectable to <=5 bpm (Rocio Lin, ANA) Accelerations: None (Rocio Lin RN) Decelerations: None (Rocio Lin, ANA) Pain Relief Measures: Comfort Measures (Rocio Lin, ANA) Pain Coping: Talking Through Contractions (Rocio Lin, ANA) IV/Blood Work: IV Infusing per Order (Rocio Lin, ANA) Patient Position/Activity: Left Tilt; Tailors (Rocio Lin, RN) Comfort Measures: Family Support (Rocio Lin, ANA) Communication: RN at Bedside; RN Reviewed Strip (Rocio Lin RN) LaborFlag: Labor (QS system process) Datetime: 08/29/2016 19:04 NBP Sys/Lenka/Mean (mmHg): 125 (QS system process) : 89 (QS system process) : 103 (QS system process) Pulse: 100 (QS system process) LaborFlag: Labor (QS system process) Datetime: 08/29/2016 19:00 Stage of : Labor (Rocio Lin RN) Respirations: 18 (Rocio Lin RN) Monitor Mode: External (Rocio Lin RN) Monitor Interventions for UA: [place]ilt[place] Adjusted (Rocio Lin RN) Frequency (min): 2-3 (Rocio Lin RN) Quality: Moderate (Rocio Lin RN) Duration (sec): 90-100 (Rocio Lin RN) Resting Tone (Palpate): Relaxed (Rocio Lin RN) Monitor Mode: External US (Rocio Lin RN) FHR Baseline Rate : 170 (Rocio Lin RN) FHR Baseline Changes: Tachycardia (Rocio Lin RN) Variability: Minimal - Undetectable to <=5 bpm (Rocio Lin RN) Accelerations: None (Rocio Lin RN) Decelerations: None (Rocio Lin RN) Pain Scale: 0 (Rocio Lin RN) Pain Presence: None/Denies (Rocio Lin RN) Pain Type: N/A (Rocio Lin RN) Pain Relief Measures: Comfort Measures (Rocio Lin RN) Pain Coping: Talking Through Contractions (Rocio Lin RN) IV/Blood Work: IV Infusing per Order (Rocio Lin, ANA) Patient Position/Activity: Left Tilt; Tailors (Rocio Lin, ANA) Comfort Measures: Family Support (Rocio Lin, ANA) Communication: RN at Bedside; RN Reviewed Strip (Rocio Lin RN) LaborFlag: Labor (QS system process)
[2016-08-30 07:32] LABS: HEMATOCRIT 30.8 % (36.0-47.0); HEMOGLOBIN 10.4 g/dL (12.0-15.5); HGB HCT DIFFERENCE 0.4; MEAN CORPUSCULAR HEMOGLOBIN 30.8 pg (27.0-33.4); MEAN CORPUSCULAR HGB CONC 33.6 g/dL (32.0-36.0); MEAN CORPUSCULAR VOLUME 92 fl (80-97); RED BLOOD COUNT 3.36 10^6/uL (3.72-5.28); RED CELL DISTRIBUTION WIDTH 13.3 % (11.5-14.0); WHITE BLOOD COUNT 19.3 10^3/uL (4.0-10.5)
--- NOTE | 2016-08-30 09:53 | PDOC PROGRESS REPORT ---
Subjective-OB Subjective: Post Delivery Day: 1 25 year old. Denies any needs at this time, states lochia is stable, pain is well controlled, voiding without difficulty. Physical Exam (OB) Vital Signs: Temp Pulse Resp BP Pulse Ox 98.3 F 81 18 116/60 97 08/30/16 04:17 08/30/16 04:17 08/30/16 04:17 08/30/16 04:17 08/30/16 04:17 Intake & Output 08/29/16 08/30/16 08/31/16 06:59 06:59 06:59 Weight 61.35 kg - PIH/Pre-Eclampsia DTR's: 1 + Clonus: Negative Headache: Absent Epigastric Pain: No Visual Changes: No - Lochia Lochia Amount: Scant < 10 ml Lochia Color: Rubra/Red - Abdomen Description: Soft, Round Hernia Present: No Fundal Description: Firm Fundal Height: u/u - u/2 Objective-Diagnostic Laboratory: 08/30/16 07:20 08/29/16 08/29/16 08/29/16 15:20 15:37 15:37 WBC 10.7 H RBC 3.40 L Hgb 10.6 L Hct 31.0 L MCV 91 MCH 31.0 MCHC 34.1 RDW 13.1 Plt Count 225 Seg Neutrophils % 65.1 Lymphocytes % 21.7 Monocytes % 12.4 Eosinophils % 0.5 Basophils % 0.3 Absolute Neutrophils 7.0 Absolute Lymphocytes 2.3 Absolute Monocytes 1.3 Absolute Eosinophils 0.1 Absolute Basophils 0.0 Urine Color STRAW Urine Appearance SLIGHTLY-CLOUDY Urine pH 7.0 Ur Specific Price 1.003 Urine Protein NEGATIVE Urine Glucose (UA) NEGATIVE Urine Ketones NEGATIVE Urine Blood SMALL H Urine Nitrite NEGATIVE Ur Leukocyte Esterase LARGE H Blood Type O POSITIVE Antibody Screen NEGATIVE 08/30/16 07:20 WBC 19.3 H RBC 3.36 L Hgb 10.4 L Hct 30.8 L MCV 92 MCH 30.8 MCHC 33.6 RDW 13.3 Plt Count 203 Seg Neutrophils % Lymphocytes % Monocytes % Eosinophils % Basophils % Absolute Neutrophils Absolute Lymphocytes Absolute Monocytes Absolute Eosinophils Absolute Basophils Urine Color Urine Appearance Urine pH Ur Specific Price Urine Protein Urine Glucose (UA) Urine Ketones Urine Blood Urine Nitrite Ur Leukocyte Esterase Blood Type Antibody Screen Assessment and Plan(PN) - Assessment and Plan (1) GDM (gestational diabetes mellitus) Qualifiers: Gestational diabetes mellitus control: diet-controlled Trimester: third trimester Qualified Code(s): O24.410 - Gestational diabetes mellitus in , diet controlled Is this a current diagnosis for this admission?: YesPlan: 6w pp diet glucose check (2) (normal spontaneous vaginal delivery) Is this a current diagnosis for this admission?: YesPlan: routine pp care - Time Spent with Patient Time with patient: Less than 15 minutes Critical Time spent with patient: Less than 15 minutes Medications reviewed and adjusted accordingly: Yes - Disposition Anticipated Discharge: Home Within: within 24 hours
[2016-08-30] MEDS ORDERED: PRENATAL VITAMIN W-O CA NO5/FE FUMARATE/FA CAPSULE PO SCH (10:00)
[2016-08-30] MEDS ORDERED: SENNOSIDES/DOCUSATE 8.6-50 MG 1 EACH TABLET PO SCH (10:00)
[2016-08-30] MEDS: FERROUS SULFATE 325 MG TABLET PO SCH (17:42)
[2016-08-30] MEDS: DOCUSATE SODIUM 100 MG CAPSULE PO SCH (17:42)
--- NOTE | 2016-08-30 18:01 | L&D General Admission ---
General Admit Datetime Report Generated by CPN: 08/30/2016 18:00 INFORMATION Patient Age: 25 (08/29/2016 15:01:QS system process) EDC: 09/19/2016 00:00 (08/29/2016 15:34:Abbey Richter RN) : 2 (08/29/2016 15:34:Molly Sutherland RN) Para: 1 (08/29/2016 15:34:Denisha Sunshine RN) Term: 1 (08/29/2016 15:34:Denisha Sunshine RN) : 0 (08/29/2016 15:34:Molly Sutherland RN) Spontaneous Abortions: 0 (08/29/2016 15:34:Molly Sutherland RN) Induced Abortions: 0 (08/29/2016 15:34:Molly Sutherland RN) Livin (08/29/2016 15:34:IRENE Wallace) Cesareans: 0 (08/29/2016 15:34:Denisha Sunshine RN) VBACs: 0 (08/29/2016 15:34:Denisha Sunshine RN) Ectopic: 0 (08/29/2016 15:34:Denisha Sunshine RN) Multiple Births: 0 (08/29/2016 15:34:Denisha Sunshine RN) Baby, Number in Womb: 1 (08/29/2016 15:34:IRENE Wallace) CARE Adequate Care: No (08/29/2016 15:34:Negar Lomeli RN) Height (in): 60 (08/29/2016 15:13:QS system process) ALLERGIES Medication Allergy: No (08/29/2016 15:34:Molly Sutherland RN) Medication Allergies: No Known Allergies (08/29/2016) (08/29/2016 15:11:QS system process) Latex Allergy: No Latex Allergies (08/29/2016 15:34:Molly Sutherland RN) COMMUNICATION Primary Language: Danish (08/29/2016 15:34:Abbey Richter RN) Medical Tx Preferred Language: Danish (08/29/2016 15:34:Abbey Richter RN) DEMOGRAPHICS Address: [address] [place] [id number] (08/29/2016 15:01:QS system process) Zipcode: [phone] (08/29/2016 15:01:QS system process) Home (08/29/2016 15:01:QS system process) N: [phone] (08/29/2016 15:01:QS system process) Next of Kin Name: ISAAK ROSENTHAL (08/29/2016 15:01:QS system process) Next of Kin (08/29/2016 15:01:QS system process) Next of Kin Relationship: MO (08/29/2016 15:01:QS system process) Date of : 1990 (08/29/2016 15:01:QS system process) Marital Status: Single (08/29/2016 15:01:QS system process) Sex: Female (08/29/2016 15:01:QS system process) Race: (08/29/2016 15:01:QS system process) Ethnicity: Non- or (08/29/2016 15:01:QS system process) Baptism: Cheondoism (08/29/2016 15:01:QS system process) DRUG AND ALCOHOL USE Alcohol: No (08/29/2016 15:34:IRENE Wallace) Cigarettes: Former Smoker. [id number] (08/29/2016 15:34:IRENE Wallace) Marijuana: No (08/29/2016 15:34:IRENE Wallace) Cocaine: No (08/29/2016 15:34:IRENE Wallace) Other Illicit Drugs: No (08/29/2016 15:34:IRENE Wallace) VACCINE HISTORY Influenza Vaccine: Yes (08/29/2016 15:34:IRENE Wallace) Influenza Date: 08/24/16 (08/29/2016 15:34:IREEN Wallace) Pneumococcal Vaccine: No (08/29/2016 15:34:IRENE Wallace) Tetanus Vaccine: Yes (08/29/2016 15:34:IRENE Wallace) Tetanus Date: 08/24/16 (08/29/2016 15:34:IRENE Wallace) Tdap Vaccine: Yes (08/29/2016 15:34:IRENE Wallace) Tdap Date: 08/24/16 (08/29/2016 15:34:IRENE Wallace) Hepatitis B Vaccine: Yes (08/29/2016 15:34:IRENE Wallace) Relief Pilot: [facility] (08/29/2016 15:34:IRENE Wallace) Feeding Preference: Breast (08/29/2016 15:34:IRENE Wallace) Benefit of Breast Feed Discussed: Yes (08/29/2016 15:34:IRENE Wallace) Circumcision: No (08/29/2016 15:34:IRENE Wallace) Classes Attended: No (08/29/2016 15:34:IRENE Wallace) Tubal Ligation: No (08/29/2016 15:34:IRENE Wallace) Tubal Authorization Signed: N/A (08/29/2016 15:34:IRENE Wallace) Consent: N/A (08/29/2016 15:34:IRENE Wallace) Consent Signed: N/A (08/29/2016 15:34:IRENE Wallace) Pain Management Plans: Epidural (08/29/2016 15:34:IRENE Wallace) Support Person: Thony (08/29/2016 15:34:IRENE Wallace) Support Person Relationship: Significant Other (08/29/2016 15:34:IRENE Wallace) Cultural/Spritual Practice: No (08/29/2016 15:34:IRENE Wallace) Spir/Cult Dietary Needs: No (08/29/2016 15:34:IRENE Wallace) LIVING SITUATION/DISCHARGE PLAN Living Arrangements: House (08/29/2016 15:34:IRENE Wallace) Adequate Access to:: Electric; Heat; Refrigeration; Plumbing/Running water; Phone; Transportation (08/29/2016 15:34:IRENE Wallace) WIC Program: Yes (08/29/2016 15:34:IRENE Wallace) Discharge Clocksmith Person: Thony longo (08/29/2016 15:34:IRENE Wallace) Person to Help after Discharge: Thony longo (08/29/2016 15:34:IRENE Wallace) Currently Using Commun Resources: Yes (08/29/2016 15:34:IRENE Wallace) Specify Current Resource Used: Medicaid (08/29/2016 15:34:IRENE Wallace) Outside Agency/Booking Manager: No (08/29/2016 15:34:IRENE Wallace) Car Seat for Discharge: No (08/29/2016 15:34:IRENE Wallace) Adoption Requested: No (08/29/2016 15:34:IRENE Wallace) Pt Contact w/infant Post : N/A (08/29/2016 15:34:IRENE Wallace) LABS Blood Type: O Positive (08/29/2016 15:34:Negar Lomeli RN) Antibody Screen: negative (08/29/2016 15:34:Laure Villarreal RN) Hemoglobin: 10.4 L (08/30/2016 07:20:QS system process) Hematocrit: 30.8 L (08/30/2016 07:20:QS system process) MCV: 92 (08/30/2016 07:20:QS system process) Group Beta Strep: Positive (08/29/2016 15:34:Negar Lomeli RN) HIV Results: NEGATIVE (08/29/2016 15:37:QS system process) Rubella: Immune (08/29/2016 15:37:Tiesha Schneider RN) Rubella Titer: 15.40 (08/29/2016 15:37:QS system process) Varicella: Non Susceptible (08/29/2016 15:34:Laure Villarreal RN) OB/PREVIOUS HISTORY History of Previous : No (08/29/2016 15:34:IRENE Wallace) History of Gestational Diabetes: No (08/29/2016 15:34:IRENE Wallace) History of PIH: No (08/29/2016 15:34:IRENE Wallace) History of Incompetent Cervix: No (08/29/2016 15:34:IRENE Wallace) History of Placenta Previa/Abrup: No (08/29/2016 15:34:IRENE Wallace) History of Macrosomia: No (08/29/2016 15:34:IRENE Wallace) History of IUGR: No (08/29/2016 15:34:IRENE Wallace) History of Hemorrhage: No (08/29/2016 15:34:IRENE Wallace) History of Loss/Stillborn: No (08/29/2016 15:34:IRENE Wallace) History of : No (08/29/2016 15:34:IRENE Wallace) History of D (Rh) Sensitization: No (08/29/2016 15:34:IRENE Wallace) History Recurrent Loss/Stillborn: No (08/29/2016 15:34:IRENE Wallace) History Depression/PP Depression: No (08/29/2016 15:34:IRENE Wallace) History of Uterine Anomaly/LAW: No (08/29/2016 15:34:IRENE Wallace) History of Infertility: No (08/29/2016 15:34:IRENE Wallace) History of ART Treatment: No (08/29/2016 15:34:IRENE Wallace) History of LAW: No (08/29/2016 15:34:IRENE Wallace) Comments Obstetrical History: G1:2015, 5lb 6 ozs G2: current, no PNCz (08/29/2016 15:34:IRENE Wallace) MEDICAL HISTORY Med Hx Diabetes: No (08/29/2016 15:34:IRENE Wallace) Med Hx Hypertension: No (08/29/2016 15:34:IRENE Wallace) Med Hx Heart Disease: No (08/29/2016 15:34:IRENE Wallace) Med Hx Autoimmune Disorder: No (08/29/2016 15:34:IRENE Wallace) Med Hx Kidney Disease/UTI: No (08/29/2016 15:34:IRENE Wallace) Med Hx Neurologic/Epilepsy: No (08/29/2016 15:34:IRENE Wallace) Med Hx Psychiatric Disorders: No (08/29/2016 15:34:IRENE Wallace) Med Hx Hepatitis/Liver Disease: No (08/29/2016 15:34:IRENE Wallace) Med Hx Varicosities/Phlebitis: No (08/29/2016 15:34:IRENE Wallace) Med Hx Thyroid Dysfunction: No (08/29/2016 15:34:IRENE Wallace) Med Hx Trauma/Violence: No (08/29/2016 15:34:IRENE Wallace) Med Hx Blood Transfusion: No (08/29/2016 15:34:IRENE Wallace) Med Hx Pulmonary (Asthma,TB): No (08/29/2016 15:34:IRENE Wallace) Med Hx Breast: No (08/29/2016 15:34:IRENE Wallace) Med Hx COTTON EXPERT Surgery: No (08/29/2016 15:34:IRENE Wallace) Med Hx Hospitalization/Surgery: No (08/29/2016 15:34:IRENE Wallace) Med Hx Anesthetic Complications: No (08/29/2016 15:34:IRENE Wallace) Med Hx Abnormal Pap Smear: No (08/29/2016 15:34:IRENE Wallace) Other Medical Diseases: No (08/29/2016 15:34:IRENE Wallace) Med Hx Significant Family Hx: No (08/29/2016 15:34:IRENE Wallace) INFECTIOUS HISTORY Inf Hx Gonorrhea: No (08/29/2016 15:34:IRENE Wallace) Inf Hx Chlamydia: No (08/29/2016 15:34:IRENE Wallace) Inf Hx Syphilis: No (08/29/2016 15:34:IRENE Wallace) Inf Hx HIV/AIDS: No (08/29/2016 15:34:IRENE Wallace) Inf Hx Human Papilloma Virus: No (08/29/2016 15:34:IRENE Wallace) Inf Hx Pt/Partner Genital Herpes: No (08/29/2016 15:34:IRENE Wallace) Inf Hx Tuberculosis/Exposure: No (08/29/2016 15:34:IRENE Wallace) Inf Hx Hepatitis B,C: No (08/29/2016 15:34:IRENE Wallace) Inf Hx Rash or Viral Illness: No (08/29/2016 15:34:IRENE Wallace) GENETIC HISTORY Gen Hx Age >=35 at ANA: No (08/29/2016 15:34:IRENE Wallace) Gen Hx Thalassemia: No (08/29/2016 15:34:IRENE Wallace) Gen Hx Congenital Heart Defect: No (08/29/2016 15:34:IRENE Wallace) Gen Hx Neural Tube Defect: No (08/29/2016 15:34:IRENE Wallace) Gen Hx Down's Syndrome: No (08/29/2016 15:34:IRENE Wallace) Gen Hx Robbin-Sachs: No (08/29/2016 15:34:IRENE Wallace) Gen Hx Vini: No (08/29/2016 15:34:IRENE Wallace) Gen Hx Familial Dysautonomia: No (08/29/2016 15:34:IRENE Wallace) Gen Hx Sickle Cell Disease/Trait: No (08/29/2016 15:34:IRENE Wallace) Gen Hx Hemophilia/Blood Disorder: No (08/29/2016 15:34:IRENE Wallace) Gen Hx Muscular Dystrophy: No (08/29/2016 15:34:IRENE Wallace) Gen Hx Cystic Fibrosis: No (08/29/2016 15:34:IRENE Wallace) Gen Hx Huntingtons Chorea: No (08/29/2016 15:34:IRENE Wallace) Gen Hx Mental Retardation/Autism: No (08/29/2016 15:34:IRENE Wallace) Gen Hx Tested for Fragile X: No (08/29/2016 15:34:IRENE Wallace) Gen Hx Other Inher/Chromosomal: No (08/29/2016 15:34:IRENE Wallace) Gen Hx Maternal Metabolic DO: No (08/29/2016 15:34:IRENE Wallace) Gen Hx Pt Father or FOB Defect: No (08/29/2016 15:34:IRENE Wallace) Gen Hx Other Genetic History: No (08/29/2016 15:34:IRENE Wallace) Gen Hx Drugs/Meds since LMP: No (08/29/2016 15:34:IRENE Wallace)
--- NOTE | 2016-08-30 18:01 | L&D Current Admission ---
Current Admit Datetime Report Generated by CPN: 08/30/2016 18:00 ADMISSION INFORMATION Current Admit Date/Time: 08/29/2016 15:40 (08/29/2016 15:43:Molly Sutherland RN) Reason for Admission: Rupture of Membranes (08/29/2016 15:43:Molly Sutherland RN) Chief Complaint: Suspected Rupture of Membranes (08/29/2016 15:43:Molly Sutherland RN) EGA per Dates: 37.0 (08/29/2016 15:43:QS system process) Method of Arrival: Wheelchair (08/29/2016 15:43:Molly Sutherland RN) Admitted From: Home (08/29/2016 15:43:Molly Sutherland RN) Reason for Induction: Not Applicable (08/29/2016 15:43:Molly Sutherland RN) Records Available: Yes (08/29/2016 15:43:IRENE Wallace) General Admission Information: Reviewed; Updated (08/29/2016 15:43:IRENE Wallace) General Admission Reviewed By: Yudith BONILLA (08/29/2016 15:43:IRENE Wallace) BELONGINGS/ADVANCED DIRECTIVES Valuables/Personal Effects: Cell Phone (08/29/2016 15:43:IRENE Wallace) Other Belongings: see signed belongings conse (08/29/2016 15:43:Molly Sutherland RN) Disposition of Belongings: Kept with Patient (08/29/2016 15:43:IRENE Wallace) Advance Direct for Healthcare: No, and Wants No Information (08/29/2016 15:43:Molly Sutherland RN) Durable Power of Finance And Administration Manager: No (08/29/2016 15:43:Molly Sutherland RN) Living Will: No (08/29/2016 15:43:Molly Sutherland RN) Organ Donor: No (08/29/2016 15:43:Molly Sutherland RN) Pt Rights Information Given: Yes (08/29/2016 15:43:Molly Sutherland RN) Pt Understands Pt Rights: Yes (08/29/2016 15:43:Molly Sutherland RN) LEARNING ASSESSMENT Knowledge Level: Understands L_D Process; Understands Care Activities; Had Pre-Hospital Education; Understands Diagnosis (08/29/2016 15:43:Molly Sutherland RN) Barriers to Learning: None (08/29/2016 15:43:Molly Sutherland RN) Learning Readiness: Motivated (08/29/2016 15:43:Molly Sutherland RN) Learns Best By: 1 to 1 Instruction (08/29/2016 15:43:Molly Sutherland RN) Learning Needs: Labor and Delivery Process; Pain Management; Symptoms to Report; Treatment Plan; Medication; Diagnosis; Nutrition; Equipment; Infant Care; Community Resources (08/29/2016 15:43:Molly Sutherland RN) DOMESTIC VIOLANCE SCREENING Dom Viol Threatened/Hurt: No (08/29/2016 15:43:Molly Sutherland RN) Hx of Abuse/Neglect past 2yrs: No (08/29/2016 15:43:Molly Sutherland RN) Feel Unsafe Going Home: No (08/29/2016 15:43:Molly Sutherland RN) Addt'l Observ Indicating Abuse: No (08/29/2016 15:43:Molly Sutherland RN) Reason Unable to Complete Screen: N/A, Screen Completed (08/29/2016 15:43:Molly Sutherland RN) Considered Personal Harm/Suicide: No (08/29/2016 15:43:Molly Sutherland RN) NUTRITIONAL/FUNCTIONAL SCREENING Problem with Appetite >5 Days: No (08/29/2016 15:43:Molly Sutherland RN) Chew/Swallow Difficulties: No (08/29/2016 15:43:Molly Sutherland RN) Inappropriate Wt Gain/Loss: No (08/29/2016 15:43:Molly Sutherland RN) Presence Skin Breakdown/Ulcer: No (08/29/2016 15:43:Molly Sutherland RN) Special Diet: No (08/29/2016 15:43:Molly Sutherland RN) Pt Requests Postdoctoral Fellow Visit: No (08/29/2016 15:43:Molly Sutherland RN) Hx of Any of the Following?: N/A (08/29/2016 15:43:Molly Sutherland RN) New Diagnosis of: N/A (08/29/2016 15:43:Molly Sutherland RN) Requires Assist w/Ambulation: No (08/29/2016 15:43:Molly Sutherland RN) Uses Assist Device to Ambulate: No (08/29/2016 15:43:Molly Sutherland RN) Pt Requires Help w/ADL's: No (08/29/2016 15:43:Molly Sutherland RN)
[2016-08-31] MEDS: IBUPROFEN 800 MG TABLET PO SCH ×2 (05:46→13:40)
--- NOTE | 2016-08-31 06:01 | L&D General Admission ---
General Admit Datetime Report Generated by CPN: 08/31/2016 06:00 INFORMATION Patient Age: 25 (08/29/2016 15:01:QS system process) EDC: 09/19/2016 00:00 (08/29/2016 15:34:Abbey Richter RN) : 2 (08/29/2016 15:34:Molly Sutherland RN) Para: 1 (08/29/2016 15:34:Denisha Sunshine RN) Term: 1 (08/29/2016 15:34:Denisha Sunshine RN) : 0 (08/29/2016 15:34:Molly Sutherland RN) Spontaneous Abortions: 0 (08/29/2016 15:34:Molly Sutherland RN) Induced Abortions: 0 (08/29/2016 15:34:Molly Sutherland RN) Livin (08/29/2016 15:34:IRENE Wallace) Cesareans: 0 (08/29/2016 15:34:Denisha Sunshine RN) VBACs: 0 (08/29/2016 15:34:Denisha Sunshine RN) Ectopic: 0 (08/29/2016 15:34:Denisha Sunshine RN) Multiple Births: 0 (08/29/2016 15:34:Denisha Sunshine RN) Baby, Number in Womb: 1 (08/29/2016 15:34:IRENE Wallace) CARE Adequate Care: No (08/29/2016 15:34:Negar Lomeli RN) Height (in): 60 (08/29/2016 15:13:QS system process) ALLERGIES Medication Allergy: No (08/29/2016 15:34:Molly Sutherland RN) Medication Allergies: No Known Allergies (08/29/2016) (08/29/2016 15:11:QS system process) Latex Allergy: No Latex Allergies (08/29/2016 15:34:Molly Sutherland RN) COMMUNICATION Primary Language: Irish (08/29/2016 15:34:Abbey Richter RN) Medical Tx Preferred Language: Irish (08/29/2016 15:34:Abbey Richter RN) DEMOGRAPHICS Address: [address] [place] [phone] (08/29/2016 15:01:QS system process) Zipcode: [phone] (08/29/2016 15:01:QS system process) Home (08/29/2016 15:01:QS system process) N: [phone] (08/29/2016 15:01:QS system process) Next of Kin Name: ISAAK ROSENTHAL (08/29/2016 15:01:QS system process) Next of Kin (08/29/2016 15:01:QS system process) Next of Kin Relationship: MO (08/29/2016 15:01:QS system process) Date of : 1990 (08/29/2016 15:01:QS system process) Marital Status: Single (08/29/2016 15:01:QS system process) Sex: Female (08/29/2016 15:01:QS system process) Race: (08/29/2016 15:01:QS system process) Ethnicity: Non- or (08/29/2016 15:01:QS system process) Mormon: Amish (08/29/2016 15:01:QS system process) DRUG AND ALCOHOL USE Alcohol: No (08/29/2016 15:34:IRENE Wallace) Cigarettes: Former Smoker. [id number] (08/29/2016 15:34:IRENE Wallace) Marijuana: No (08/29/2016 15:34:IRENE Wallace) Cocaine: No (08/29/2016 15:34:IRENE Wallace) Other Illicit Drugs: No (08/29/2016 15:34:IRENE Wallace) VACCINE HISTORY Influenza Vaccine: Yes (08/29/2016 15:34:IRENE Wallace) Influenza Date: 08/24/16 (08/29/2016 15:34:IRENE Wallace) Pneumococcal Vaccine: No (08/29/2016 15:34:IRENE Wallace) Tetanus Vaccine: Yes (08/29/2016 15:34:IRENE Wallace) Tetanus Date: 08/24/16 (08/29/2016 15:34:IRENE Wallace) Tdap Vaccine: Yes (08/29/2016 15:34:IRENE Wallace) Tdap Date: 08/24/16 (08/29/2016 15:34:IRENE Wallace) Hepatitis B Vaccine: Yes (08/29/2016 15:34:IRENE Wallace) Counseling Services Manager: [facility] (08/29/2016 15:34:IRENE Wallace) Feeding Preference: Breast (08/29/2016 15:34:IRENE Wallace) Benefit of Breast Feed Discussed: Yes (08/29/2016 15:34:IRENE Wallace) Circumcision: No (08/29/2016 15:34:IRENE Wallace) Classes Attended: No (08/29/2016 15:34:IRENE Wallace) Tubal Ligation: No (08/29/2016 15:34:IRENE Wallace) Tubal Authorization Signed: N/A (08/29/2016 15:34:IRENE Wallace) Consent: N/A (08/29/2016 15:34:IRENE Wallace) Consent Signed: N/A (08/29/2016 15:34:IRENE Wallace) Pain Management Plans: Epidural (08/29/2016 15:34:IRENE Wallace) Support Person: Thony (08/29/2016 15:34:IRENE Wallace) Support Person Relationship: Significant Other (08/29/2016 15:34:IRENE Wallace) Cultural/Spritual Practice: No (08/29/2016 15:34:IRENE Wallace) Spir/Cult Dietary Needs: No (08/29/2016 15:34:IRENE Wallace) LIVING SITUATION/DISCHARGE PLAN Living Arrangements: House (08/29/2016 15:34:IRENE Wallace) Adequate Access to:: Electric; Heat; Refrigeration; Plumbing/Running water; Phone; Transportation (08/29/2016 15:34:IRENE Wallace) WIC Program: Yes (08/29/2016 15:34:IRENE Wallace) Discharge Alteration Inspector Person: Thony longo (08/29/2016 15:34:IRENE Wallace) Person to Help after Discharge: Thony longo (08/29/2016 15:34:IRENE Wallace) Currently Using Commun Resources: Yes (08/29/2016 15:34:IRENE Wallace) Specify Current Resource Used: Medicaid (08/29/2016 15:34:IRENE Wallace) Outside Agency/Global Project Manager: No (08/29/2016 15:34:IRENE Wallace) Car Seat for Discharge: No (08/29/2016 15:34:IRENE Wallace) Adoption Requested: No (08/29/2016 15:34:IRENE Wallace) Pt Contact w/infant Post : N/A (08/29/2016 15:34:IRENE Wallace) LABS Blood Type: O Positive (08/29/2016 15:34:Negar Lomeli RN) Antibody Screen: negative (08/29/2016 15:34:Laure Villarreal RN) Hemoglobin: 10.4 L (08/30/2016 07:20:QS system process) Hematocrit: 30.8 L (08/30/2016 07:20:QS system process) MCV: 92 (08/30/2016 07:20:QS system process) Group Beta Strep: Positive (08/29/2016 15:34:Negar Lomeli RN) HIV Results: NEGATIVE (08/29/2016 15:37:QS system process) Rubella: Immune (08/29/2016 15:37:Tiesha Schneider RN) Rubella Titer: 15.40 (08/29/2016 15:37:QS system process) Varicella: Non Susceptible (08/29/2016 15:34:Laure Villarreal RN) OB/PREVIOUS HISTORY History of Previous : No (08/29/2016 15:34:IRENE Wallace) History of Gestational Diabetes: No (08/29/2016 15:34:IRENE Wallace) History of PIH: No (08/29/2016 15:34:IRENE Wallace) History of Incompetent Cervix: No (08/29/2016 15:34:IRENE Wallace) History of Placenta Previa/Abrup: No (08/29/2016 15:34:IRENE Wallace) History of Macrosomia: No (08/29/2016 15:34:IRENE Wallace) History of IUGR: No (08/29/2016 15:34:IRENE Wallace) History of Hemorrhage: No (08/29/2016 15:34:IRENE Wallace) History of Loss/Stillborn: No (08/29/2016 15:34:IRENE Wallace) History of : No (08/29/2016 15:34:IRENE Wallace) History of D (Rh) Sensitization: No (08/29/2016 15:34:IRENE Wallace) History Recurrent Loss/Stillborn: No (08/29/2016 15:34:IRENE Wallace) History Depression/PP Depression: No (08/29/2016 15:34:IRENE Wallace) History of Uterine Anomaly/LAW: No (08/29/2016 15:34:IRENE Wallace) History of Infertility: No (08/29/2016 15:34:IRENE Wallace) History of ART Treatment: No (08/29/2016 15:34:IRENE aWllace) History of LAW: No (08/29/2016 15:34:IRENE Wallace) Comments Obstetrical History: G1:2015, 5lb 6 ozs G2: current, no PNCz (08/29/2016 15:34:IRENE Wallace) MEDICAL HISTORY Med Hx Diabetes: No (08/29/2016 15:34:IRENE Wallace) Med Hx Hypertension: No (08/29/2016 15:34:IRENE Wallace) Med Hx Heart Disease: No (08/29/2016 15:34:IRENE Wallace) Med Hx Autoimmune Disorder: No (08/29/2016 15:34:IRENE Wallace) Med Hx Kidney Disease/UTI: No (08/29/2016 15:34:IRENE Wallace) Med Hx Neurologic/Epilepsy: No (08/29/2016 15:34:IRENE Wallace) Med Hx Psychiatric Disorders: No (08/29/2016 15:34:IRENE Wallace) Med Hx Hepatitis/Liver Disease: No (08/29/2016 15:34:IRENE Wallace) Med Hx Varicosities/Phlebitis: No (08/29/2016 15:34:IRENE Wallace) Med Hx Thyroid Dysfunction: No (08/29/2016 15:34:IRENE Wallace) Med Hx Trauma/Violence: No (08/29/2016 15:34:IRENE Wallace) Med Hx Blood Transfusion: No (08/29/2016 15:34:IRENE Wallace) Med Hx Pulmonary (Asthma,TB): No (08/29/2016 15:34:IRENE Wallace) Med Hx Breast: No (08/29/2016 15:34:IRENE Wallace) Med Hx MEDICAL RECORD ADMINISTRATOR Surgery: No (08/29/2016 15:34:IRENE Wallace) Med Hx Hospitalization/Surgery: No (08/29/2016 15:34:IRENE Wallace) Med Hx Anesthetic Complications: No (08/29/2016 15:34:IRENE Wallace) Med Hx Abnormal Pap Smear: No (08/29/2016 15:34:IRENE Wallace) Other Medical Diseases: No (08/29/2016 15:34:IRENE Wallace) Med Hx Significant Family Hx: No (08/29/2016 15:34:IRENE Wallace) INFECTIOUS HISTORY Inf Hx Gonorrhea: No (08/29/2016 15:34:IRENE Wallace) Inf Hx Chlamydia: No (08/29/2016 15:34:IRENE Wallace) Inf Hx Syphilis: No (08/29/2016 15:34:IRENE Wallace) Inf Hx HIV/AIDS: No (08/29/2016 15:34:IRENE Wallace) Inf Hx Human Papilloma Virus: No (08/29/2016 15:34:IRENE Wallace) Inf Hx Pt/Partner Genital Herpes: No (08/29/2016 15:34:IRENE Wallace) Inf Hx Tuberculosis/Exposure: No (08/29/2016 15:34:IRENE Wallace) Inf Hx Hepatitis B,C: No (08/29/2016 15:34:IRENE Wallace) Inf Hx Rash or Viral Illness: No (08/29/2016 15:34:IRENE Wallace) GENETIC HISTORY Gen Hx Age >=35 at ANA: No (08/29/2016 15:34:IRENE Wallace) Gen Hx Thalassemia: No (08/29/2016 15:34:IRENE Wallace) Gen Hx Congenital Heart Defect: No (08/29/2016 15:34:IRENE Wallace) Gen Hx Neural Tube Defect: No (08/29/2016 15:34:IRENE Wallace) Gen Hx Down's Syndrome: No (08/29/2016 15:34:IRENE Wallace) Gen Hx Robbin-Sachs: No (08/29/2016 15:34:IRENE Wallace) Gen Hx Vini: No (08/29/2016 15:34:IRENE Wallace) Gen Hx Familial Dysautonomia: No (08/29/2016 15:34:IRENE Wallace) Gen Hx Sickle Cell Disease/Trait: No (08/29/2016 15:34:IRENE Wallace) Gen Hx Hemophilia/Blood Disorder: No (08/29/2016 15:34:IRENE Wallace) Gen Hx Muscular Dystrophy: No (08/29/2016 15:34:IRENE Wallace) Gen Hx Cystic Fibrosis: No (08/29/2016 15:34:IRENE Wallace) Gen Hx Huntingtons Chorea: No (08/29/2016 15:34:IRENE Wallace) Gen Hx Mental Retardation/Autism: No (08/29/2016 15:34:IRENE Wallace) Gen Hx Tested for Fragile X: No (08/29/2016 15:34:IRENE Wallace) Gen Hx Other Inher/Chromosomal: No (08/29/2016 15:34:IRENE Wallace) Gen Hx Maternal Metabolic DO: No (08/29/2016 15:34:IRENE Wallace) Gen Hx Pt Father or FOB Defect: No (08/29/2016 15:34:IRENE Wallace) Gen Hx Other Genetic History: No (08/29/2016 15:34:IRENE Wallace) Gen Hx Drugs/Meds since LMP: No (08/29/2016 15:34:IRENE Wallace)
--- NOTE | 2016-08-31 06:15 | L&D Care Plan ---
LD CARE PLANS Datetime Report Generated by CPN: 08/31/2016 06:15 Datetime: 08/29/2016 15:28 Pain State: Risk For (Negar Lomeli RN) Related To: Labor and Delivery Process; Disease Process; Treatment and Procedures; Post (Negar Lomeli RN) Goal(s): Patients Pain will be Assessed and Managed; Patient will Verbalize Adequate Relief of Pain or the Ability to [place] with Current Pain (Negar Lomeli RN) Interventions: Assess Pain Severity on Scale of 0 (None) to 5 (Severe); Assess Type, Location and Intensity of Pain Each Time Client Reports Discomfort and Notify Provider if Unusal Pain Develops; Encourage Proper Breathing and Relaxation Techniques; Offer Alternatives Such as Repositioning, Calm Environment, Massages, Diversional Activities, Ice Pack, Splinting, and Ambulation; Administer Analgesics as Ordered; Assist with Epidural Placement as Appropriate; Evaluate Therapeutic Effectiveness of Medication and Treatments (Negar Lomeli RN) Outcome: Patient will Report Absence or Relief of Pain Consistent with Established Pain Goal (Negar Lomeli RN) Status: Ongoing (Negar Lomeli RN) Outcome: Patient will have a Decrease in Signs and Symptoms of Discomfort (Negar Lomeli RN) Status: Ongoing (Negar Lomeil RN) Outcome: Pain will be Controlled During Procedures (Negar Lomeli RN) Status: Ongoing (Negar Lomeli RN) Anxiety State: Risk For (Negar Lomeli RN) Related To: Labor and Delivery Process; Medical Interventions; Significant Life Event (Negar Lomeli RN) Goal(s): Patient will have Decreased Anxiety and be able to Function at Acceptable Levels (Negar Lomeli RN) Interventions: Assess Verbal and Nonverbal Behavioral Indicators of Anxiety; Assist Patient to Identify and Verbalize Symptoms of Anxiety; Identify and Demonstrate Techniques to Control Anxiety; Assist Patient with Coping Mechanisms to Manage Anxiety; Provide Theraputic Touch for the Patient; Explain to Patient, Using a Calm Reassuring Approach and Nonmedical Terms, All Activities, Procedures, and Concerns; Instruct Patient and Family about Post Discharge Care, Limitations, Symptoms to Report and Resources Available (Negar Lomeli RN) Outcome: Patient will Identify, Verbalize and Demonstrate Techniques to Control Anxiety (Negar Lomeli RN) Status: Ongoing (Negar Lomeli RN) Outcome: Patient's Posture, Facial Expressions, Gestures and Activity Level will Reflect Decreased Anxiety (Negar Lomeli RN) Status: Ongoing (Negar Lomeli RN) Outcome: Patient will Verbalize a Sense of Control and/or Acceptance of the Situation (Negar Lomeli RN) Status: Ongoing (Negar Lomeli RN) Outcome: Patient will Identify and Utilize Support Person (Negar Lomeli RN) Status: Ongoing (Negar Lomeli RN) Knowledge Deficit State: Risk For (Negar Lomeli RN) Related To: Labor and Delivery Process; Surgical Procedures; Treatment and Procedures; Impending Alterations in Family Dynamics; Feeding and Care; Community Resources and Available Support Mechanisms (Negar Lomeli RN) Goal(s): Patient will Accurately Verbalize Understanding of Plan of Care and Treatment; Patient and Family will Accurately Verbalize Understanding of the Disease Process (Negar Lomeli RN) Interventions: Assess Motivation and Willingness of Patient/Family to Learn; Assess Preferred Learning Mode: One to One Instruction, Reading, Videos, Group Discussion or Demonstration; Assess Barriers to Learning: Pain, Emotional State, Language Barrier, Cognitive Impairment, Visual or Hearing Deficits; Assess Patient and Family Knowledge of Disease Process, Medications and Treatment; Discuss Therapy and/or Treatment Options, Describe Rationale Behind Management, Therapy and Treatment Recommendations; Instruct Patient and Family on Signs and Symptoms to Report; Instruct Patient and Family on Medication Effects and Side Effects; Provide Appropriate and Timely Education Using Multiple Techniques; Provide Patient and Family with Support Group Information and Resources; Give Clear and Thorough Explanations and Demonstrations (Negar Lomeli RN) Outcome: Patient and Family will Verbalize Understanding of Condition, Treatment and Signs and Symptoms to Report (Negar Lomeli RN) Status: Ongoing (Negar oLmeli RN) Outcome: Patient will Identify Perceived Learning Needs and Express Motivation to Learn (Negar Lomeli RN) Status: Ongoing (Negar Lomeli RN) Outcome: Patient will Verbalize Understanding of Desired Content, and/or Performs Desired Skill Prior to Discharge (Negar Lomeli RN) Status: Ongoing (Negar Lomeli RN) Infection State: Risk For (Negar Lomeli RN) Related To: Prolonged Labor or Induction; Premature/Prolonged Rupture of Membranes; Invasive Procedures (Negar Lomeli RN) Goal(s): The Patient will be Free of Infection, Vital Signs Stable and Lab Work within Normal Parameters (Negar Lomeli RN) Interventions: Instruct and Reinforce Proper Handwashing, Hygiene, and Care Techniques to Patient and Family; Monitor Vital Signs; Monitor Patient for the Following Signs of Infection: Fever, Abdominal Tenderness, Unusual Discharge; Monitor Aminiotic Fluid, Urine and Lochia for Color and Odor; Observe Wounds, Incisions and Invasive Line Sites for Redness, Drainage and Edema; Assess IV Sites per Hospital Policy; Monitor Lab and Test Results and Notify Provider of Abnormal Findings; Assess Nutritional Status and Promote Good Nutrition (Negar Lomeli RN) Outcome: Patient will Remain Free of Infection (Negar Lomeli RN) Status: Ongoing (Negar Lomeli RN) Outcome: Infection will be Recognized Early to Allow for Prompt Treatment (Negar Lomeli RN) Status: Ongoing (Negar Lomeli, RN) Outcome: Patient will have Vital Signs Within Expected Range (Negar Lomeli, RN) Status: Ongoing (Negar Lomeli RN) Fluid Volume State: Risk For (Negar Lomeli RN) Related To: Gestational Hypertension (Negar Lomeli RN) Goal(s): Patient will Achieve and Maintain a Balanced Fluid Volume Status; Hemodynamically Stable (Negar Lomeli RN) Interventions: Monitor Vital Signs; Auscultate Breath Sounds; Monitor Patient for Skin Turgor, Mucous Membranes, Dry Skin, Weakness, Headaches and Confusion; Provide Oral Fluids as Ordered; Initiate and Maintain Intravenous Fluids as Ordered; Monitor Intake and Output as Indicated Per Patient Status; Accurately Measure Blood Loss; Monitor Lab and Test Results as Obtained and Notify Provider of Abnormal Findings; Monitor Patient's Weight (Negar Lomeli RN) Outcome: Patient will have Clear Lung Sounds (Negar Lomeli RN) Status: Ongoing (Negar Lomeli RN) Outcome: Patient will have Vital Signs within Expected Range (Negar Lomeli RN) Status: Ongoing (Negar Lomeli, RN) Outcome: Urine Output will be within Expected Range (Negar Lomeli, RN) Status: Ongoing (Negar Lomeli, RN) Outcome: Patient will have Minimal Generalized or Upper Extremity Edema (Negar Lomeli RN) Status: Ongoing (Negar Lomeli, RN) Injury State: Risk For (Negar Lomeli RN) Related To: Labor and Delivery Process (Negar Lomeli RN) Goal(s): Patient will Remain Free from Injury (Negar Lmoeli RN) Interventions: Monitoring as per Hospital Protocol; Assess Neurological Status; Perform Risk Assessment of Patients with Induction and ; Perform Fall Risk Assessment and Prevention per Hospital Protocol; Perform DVT Risk Assessment and Prophylaxis per Hospital Protocol; Ensure that Oxygen, Suction, and Resuscitation Medications and Equipment are Readily Available; Confirm Patient ID Prior to Procedure(s) and Medication Administration per Hospital Policy (Negar Lomeli RN) Outcome: Successful Fall Risk Prevention (Negar Lomeli RN) Status: Ongoing (Negar Lomeli, RN) Outcome: Patient will Deliver without Adverse [place] (Negar Lomeli RN) Status: Ongoing (Negar Lomeli RN) Outcome: Patient's Neurological Status will Remain Stable (Negar Lomeli RN) Status: Ongoing (Negar Lomeli RN) Impaired Skin Integrity State: Risk For (Negar Lomeli RN) Related To: Vaginal Delivery; Prolonged Bedrest; Invasive Procedures (Negar Lomeli RN) Goal(s): Patient will Maintain Optimal Skin Integrity, Free of Breakdown, Injury or Infection (Negar Lomeli, RN) Interventions: Complete Screening for Pressure Ulcer Risk and Initiate Protocol per Hospital Policy; Monitor Site of Skin Impairment for Color Changes, Redness, Swelling, Warmth, Pain or Other Signs of Infection; Encourage and Assist with Position Changes; Monitor Patient's Mobility Status; Provide Adequate Nutrition and Fluids; Teach Patient Appropriate Hygienic Care; Teach Patient/Family Skin Care Management (Negar Lomeli, RN) Outcome: Patient will not have Evidence of Injury Such as Skin Breakdown, Scrapes, Cuts, or Bruising (Negar Lomeli RN) Status: Ongoing (Negar Lomeli RN) Outcome: Patient will Report Any Altered Sensation or Pain at Site of Skin Impairment (Negar Lomeli, RN) Status: Ongoing (Negar Lomeli RN) Outcome: Patients Incisions and Wounds will be without Signs or Symptoms of Infection (Negar Lomeli RN) Status: Ongoing (Negar Lomeli RN) Outcome: Patient will Demonstrate Understanding of Plan to Heal Skin and Prevent Reinjury and Verbalize Risk Factors (Negar Lomeli RN) Status: Ongoing (Negar Lomeli RN) Parenting Impaired State: Not Applicable (Negar Lomeli RN) Nutrition State: Risk For (Negar Lomeli RN) Related To: (Negar Lomeli RN) Goal(s): Patient will have an Intake of Nutrients Sufficient to Meet Metabolic Needs (Negar Lomeli RN) Interventions: Nutritional Screening and Assessment per Hospital Policy; Consult Employee Services Manager for Further Assessment and Recommendations Regarding Food Preferences and Nutritional Support; Allow Patient to Plan and Order Diet when Possible; Monitor Laboratory Values That Indicate Nutritional Well-being; Consult [employer] for Nutritional Support Regarding Requirements; Document Actual Weight Initially and Weekly (Do Not Estimate); Encourage Patient Participation in Maintaining a Food Log as Indicated; Educate Patient on the Importance of Maintaining an Adequate Caloric Intake (Negar Lomeli RN) Outcome: Patient will Receive Adequate Calories and Fluid Volume to Meet Metabolic Needs (Negar Lomeli RN) Status: Ongoing (Negar Lomeli, RN) Outcome: Patient will Select Foods or Meals that Support Adequate Nutrition (Negar Lomeli, RN) Status: Ongoing (Negar Lomeli, RN) Grieving State: Not Applicable (Negar Lomeli, RN) Additional Care Plan State: Not Applicable (Negar Lomeli RN)
[2016-08-31 09:40] VITALS: BP 120/72
[2016-08-31 09:41] LABS: HEPATITIS C VIRUS AB <0.1 s/co ratio (0.0-0.9)
[2016-08-31] MEDS: FERROUS SULFATE 325 MG TABLET PO SCH (10:07)
[2016-08-31] MEDS: DOCUSATE SODIUM 100 MG CAPSULE PO SCH (10:07)
[2016-08-31] MEDS: FAMOTIDINE 20 MG TABLET PO SCH (10:08)
--- NOTE | 2016-08-31 16:05 | PDOC DISCHARGE SUMMARY ---
Final Diagnosis Discharge Date: 08/31/16 - Final Diagnosis (1) Marijuana use Is this a current diagnosis for this admission?: Yes (2) (normal spontaneous vaginal delivery) Is this a current diagnosis for this admission?: Yes (3) GDM (gestational diabetes mellitus) Is this a current diagnosis for this admission?: Yes Discharge Data - Discharge Medication Home Medications: Pnv No.122/Iron/Folic Acid [ Multi Tablet] 1 each PO DAILY #60 tablet Docusate Sodium [Colace 100 mg Capsule] 100 mg PO BID #60 capsule 08/31/16 Ferrous Sulfate [Feosol 325 mg Tablet] 325 mg PO BID #60 tablet 08/31/16 Ibuprofen [Motrin 800 mg Tablet] 800 mg PO Q8HP PRN #90 tablet 08/31/16 Reason(s) for Admission: Onset of Labor Procedures: Ultrasound Intrapartum Procedure(s): Spontaneous Vaginal Delivery - Data Baby 1 Male at 1 minute: 8 at 5 minutes: 9 Weight: 3062 kg Home with Mother: No - NICU-opioid Complications: No - Diagnosis Test Laboratory: Temp Pulse Resp BP Pulse Ox 97.8 F 73 20 120/72 100 08/31/16 09:10 08/31/16 09:10 08/31/16 09:10 08/31/16 09:10 08/31/16 09:10 08/29/16 08/29/16 08/30/16 15:20 15:37 07:20 RBC 3.40 L 3.36 L Hgb 10.6 L 10.4 L Hct 31.0 L 30.8 L Urine Opiates Screen UNCONFIRMED POSITIVE - Discharge information/Instructions Discharge Activity: Activity As Tolerated, No Lifting Over 10 Pounds, No Lifting /Push/Pulling, Pelvic Rest, Slowly Increase Activity, No tub bath Discharge Diet: Regular Disposition: HOME, SELF-CARE Follow up with: [facility] in: 4, Weeks - pp appt Physical Exam (OB) Vital Signs: Temp Pulse Resp BP Pulse Ox 97.8 F 73 20 120/72 100 08/31/16 09:10 08/31/16 09:10 08/31/16 09:10 08/31/16 09:10 08/31/16 09:10 Intake & Output 08/30/16 08/31/16 09/01/16 06:59 06:59 06:59 Intake Total 100 Balance 100 Weight 61.35 kg - General General Appearance: Appears well In distress: None - PIH/Pre-Eclampsia DTR's: 1 + Clonus: Negative Headache: Absent Epigastric Pain: No Visual Changes: No - Episiotomy/Laceration Site Condition: N/A - Lochia Lochia Amount: Scant < 10 ml Lochia Color: Rubra/Red - Abdomen Description: Soft Hernia Present: No Fundal Description: Firm, Midline Fundal Height: 1/u - 2/u - Respiratory Respiratory Status: No respiratory distress - Extremities Upper extremity: Normal inspection Lower extremities: Normal inspection - Neurological Cognition: Normal Orientation: AAOx4 - Psychological Associated symptoms: Normal affect - baby and friends at bedside.
== END 2016-08-31 17:02 | disposition home or self-care (01) | DRG 775 ==
LOC: LC 15:00 → LR 15:30 → 2S 23:14
PROVIDERS: ADMIT Specialist; ATTEND Specialist
PROC: 10E0XZZ Delivery of Products of Conception, External Approach (ICD-10-PCS; principal; 2016-08-29)
PROC: 4A1HXCZ Monitoring of Products of Conception, Cardiac Rate, External Approach (ICD-10-PCS; 2016-08-29)
DX: O24.410 Gestational diabetes mellitus in pregnancy, diet controlled (principal); O41.1230 Chorioamnionitis, third trimester, not applicable or unspecified; O99.824 Streptococcus B carrier state complicating childbirth; O69.81X0 Labor and delivery complicated by cord around neck, without compression, not applicable or unspecified; Z87.891 Personal history of nicotine dependence; Z3A.37 37 weeks gestation of pregnancy; Z37.0 Single live birth
CPT/HCPCS: 36415; 80307; 81005; 85025; 85027; 86592; 86701; 86762; 86803; 86804; 86850; 86900; 86901; 87340; 88307; J0290; J1580; J2540; J2590; J3490

== ENCOUNTER 2018-09-15 21:31 | Emergency (ER) | payer SELFPAY ==
[2018-09-15] MEDS ORDERED: ACETAMINOPHEN 325 MG TABLET PO ONE (22:52)
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
[2018-09-15 22:53] VITALS: BP 117/58
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
[2018-09-16] MEDS ORDERED: IBUPROFEN 800 MG TABLET PO ONE (07:31)
[2018-09-16] MEDS ORDERED: IBUPROFEN 800 MG TABLET ONE (07:34)
== END 2018-09-16 05:31 | disposition home or self-care (01) ==
LOC: ER 21:31
DX: M79.642 Pain in left hand (principal)
CPT/HCPCS: 99283

== ENCOUNTER 2019-06-04 13:21 | Emergency (ER) | payer OTHER ==
[2019-06-04 13:32] VITALS: BP 100/63
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
== END 2019-06-04 15:31 | disposition home or self-care (01) ==
LOC: ER 13:21
DX: M62.830 Muscle spasm of back (principal); M25.512 Pain in left shoulder; V49.40XA Driver injured in collision with unspecified motor vehicles in traffic accident, initial encounter; F17.200 Nicotine dependence, unspecified, uncomplicated
CPT/HCPCS: 99283